=== PATIENT | male | born 1965 | race Caucasian/White ===

== ENCOUNTER 2017-05-14 15:09 | Inpatient (IN) ==
--- NOTE | 2017-05-14 16:21 | Emergency Department Note ---
Addendum entered and electronically signed by Seymour Clark DO 05/14/17 19:20: EKG - Normal sinus rhythm. Rate 86. TX 144. QRS 102. QTC 394. Normal axis. No acute ST elevation or depression. Original Note: Disposition Clinical Impression: Generalized weakness, Dehydration Altered mental status Qualifiers: Altered mental status type: unspecified Qualified Code(s): R41.82 - Altered mental status, unspecified Disposition: Admitted As Inpatient Condition: Fair Time of Disposition: 18:35 General Adult HPI - General Chief complaint: ED Weakness Stated complaint: Weakness/No appetite Time Seen by Provider: 05/14/17 16:05 Source: other Mode of arrival: other Limitations: no limitations Nursing Notes Reviewed: Yes Vital Signs Reviewed: Yes - History of Present Illness HPI Narrative: Patient is a 52-year-old male with past medical history of Down syndrome, cognitive delay. He presents today due to confusion, [place], generalized weakness. He lives at home with 24-hour care. A caregiver is currently present at bedside and states that the patient has been like this for a few days. He states that normally the patient is able to carry on a small amount conversation, walks by himself, feeds himself. However, over the past day or 2 the patient has had decreased and ability to ambulate, generalized fatigue, decreased speech, will only answer some yes or no questions, will not be himself. He has had decreased food intake. In terms of review of systems, the patient would not answer any of my questions. He was staring blankly at me. Would not follow any commands. Pain Scale: 0 - Related Data Home Medications Medication Instructions Recorded Confirmed Acetaminophen [Tylenol] 650 mg PO Q4-6H PRN 05/14/17 05/14/17 Ascorbate Calcium [Vitamin C] 500 mg PO QPM 05/14/17 05/14/17 Benztropine [Cogentin] 0.5 mg PO QAM 05/14/17 05/14/17 Calcium Carbonate/Vitamin D3 1 each PO BID 05/14/17 05/14/17 [Calcium 600-Vit D3 400 Tablet] Chlorpromazine HCl 25 mg PO QAM 05/14/17 05/14/17 Chlorpromazine HCl 150 mg PO HS 05/14/17 05/14/17 Cholecalciferol (Vitamin D3) 2,000 unit PO QPM 05/14/17 05/14/17 [Vitamin D3] Divalproex (24 HR) [Depakote ER 1,000 mg PO 1600 05/14/17 05/14/17 (24 HR)] Divalproex Sodium [Depakote 375 mg PO QAM 05/14/17 05/14/17 Sprinkle] Docusate [Colace] 200 mg PO QPM 05/14/17 05/14/17 Guaifenesin [Mucinex] 600 mg PO Q12H PRN 05/14/17 05/14/17 Levothyroxine [Synthroid] 100 mcg PO QAM 05/14/17 05/14/17 Loratadine [Claritin] 10 mg PO QAM 05/14/17 05/14/17 Mag Hydrox/Al Hydrox/Simeth 30 ml PO Q4H PRN 05/14/17 05/14/17 [Antacid Suspension] Mineral Oil/Petrolat,Wht/Water 1 appl TP TID PRN 05/14/17 05/14/17 [Lubriderm Daily Moisture Lot] Ondansetron [Zofran ODT] 8 mg SL Q6H PRN 05/14/17 05/14/17 Polyethylene Glycol 3350 [MiraLAX] 17 gm PO QAM 05/14/17 05/14/17 Rivaroxaban [Xarelto] 20 mg PO QPM 05/14/17 05/14/17 Tamsulosin [Flomax] 0.4 mg PO QAM 05/14/17 05/14/17 Previous Rx's Medication Instructions Recorded Nut.tx.impaired Digest Fxn [Ensure 1 bottle PO TID #90 can 05/19/17 Clear] Allergies Allergy/AdvReac Type Severity Reaction Status Date / Time No Known Allergies Allergy Verified 05/14/17 15:24 Limitations: ROS unobtainable due to patients medical condition Past Medical History - Past Medical History Attestation: Yes The following information was validated with the patient. Source: patient Medical history: Reports: DVT, hyperlipidemia, thyroid disease - Social History Smoking Status: Never smoker Alcohol use: Reports: none Drug use: Reports: none Physical Exam - General Limitations: altered mental status General appearance: alert - Eye Eye exam: Present: PERRL, EOMI, other (epicanthal folds consistent with down syndrome) - ENT ENT exam: mucous membranes dry - Neck Neck exam: Present: normal inspection, full ROM, trachea midline. Absent: tenderness - Respiratory Respiratory exam: Present: other (Limited examination due to poor cooperation. Shallow breaths, no significant wheezing or rales heard.) - Cardiovascular Cardiovascular exam: Present: regular rate, normal rhythm, normal heart sounds - Abdominal Exam Abdominal exam: Present: soft, Non-Tender. Absent: tenderness, distention, guarding, rebound, rigidity - Extremities Exam Extremities exam: Present: pedal edema (Mild edema bilateral lower chimneys). Absent: tenderness - Neurological Exam Neurological exam: Present: alert, other (Patient is nonverbal for me. will follow any commands. He is sitting with upper body slumped forward. He will make eye contact with me, EOMI, PERRLA. ) - Psychiatric Psychiatric exam: Present: flat affect - Skin Skin exam: Present: warm, dry, intact, normal color Course Course Narrative: Patient blood pressure mildly low at 90s over 80s. Thus the vitals within normal limits. Physical exam shows patient no distress, appears to be generalized weak on exam. Patient is nonverbal for me. will not follow any commands. He is sitting with upper body slumped forward. He will make eye contact with me, EOMI, PERRLA. Unable to assess strength due to not following commands. No focal neuro deficits seen on limited exam. Lungs clear, but limited exam due to poor cooperation. Generalized workup was ordered including a basic blood work, troponin, UA, chest x-ray. Basic blood work showed no elevation white blood cell count, hemoglobin within normal limits, electrolytes within normal limits, LFTs normal. Kidney function within normal limits. Urinalysis negative. Chest x-ray negative for any acute cardiopulmonary process. Patient was given a liter of normal saline due to dehydration clinically. He did not improve symptomatically. Will admit to the hospitalist due to altered mental status, decreased ambulation status, dehydration. 18:35 I called the hospitalist, spoke with Bozena Robles. We discussed head CT. I did not order a head CT due to no focal neurologic deficits on exam. She is going to talk to her attending and see if they can accept the patient without a head CT. 19:00 Patient accepted for admission, Bozena Robles has requested head CT and will follow up on results. CT ordered. Vital Signs Temperature 97.9 F 05/14/17 15:17 Pulse Rate 87 05/14/17 15:17 Respiratory Rate 18 05/14/17 15:17 Blood Pressure 98/66 05/14/17 15:17 O2 Sat by Pulse Oximetry 94 05/14/17 15:17 Temperature 97.7 F 05/19/17 19:03 Pulse Rate 74 05/19/17 19:03 Respiratory Rate 18 05/19/17 19:03 Blood Pressure 100/66 05/19/17 19:03 O2 Sat by Pulse Oximetry 94 05/19/17 19:03 Oxygen Delivery Oxygen Delivery Room Air Medical Decision Making - MDM Narrative Medical decision making narrative: Physical exam shows patient no distress, appears to be generalized weak on exam. Patient is nonverbal for me. will not follow any commands. He is sitting with upper body slumped forward. He will make eye contact with me, EOMI , PERRLA. Unable to assess strength due to not following commands. No focal neuro deficits seen on limited exam. Lungs clear, but limited exam due to poor cooperation. Generalized workup was ordered including a basic blood work, troponin, UA, chest x-ray. Basic blood work showed no elevation white blood cell count, hemoglobin within normal limits, electrolytes within normal limits, LFTs normal. Kidney function within normal limits. Urinalysis negative. Chest x-ray negative for any acute cardiopulmonary process. Patient was given a liter of normal saline due to dehydration clinically. He did not improve symptomatically. Will admit to the hospitalist due to altered mental status, decreased ambulation status, dehydration. I called the hospitalist, spoke with Bozena Robles. We discussed head CT. I did not order a head CT due to no focal neurologic deficits on exam. She is going to talk to her attending and see if they can accept the patient without a head CT. 19:00 Patient accepted for admission, Bozena Robles has requested head CT and will follow up on results. CT ordered. - Medical Records Medical records reviewed: Yes I reviewed the patient's medical records. - Lab Data Lab results reviewed: Yes I reviewed the patient's lab results. Result diagrams: 05/17/17 07:39 05/17/17 07:39 Lab Results 05/14/17 05/14/17 05/14/17 Range/Units 15:30 15:51 15:51 WBC 7.3 (4.3-11.1) K/mcL RBC 4.17 L (4.19-5.50) M/mcL Hgb 13.6 (12.9-16.9) g/dL Hct 42.8 (37.5-50.1) % MCV 102.6 H (83.0-100.0) fL MCH 32.6 (28.0-33.3) pg MCHC 31.8 (31.6-35.5) g/dL RDW 14.9 H (11.5-14.5) % Plt Count 103 L (140-400) K/mcL MPV 13.7 H (9.4-12.4) fL Immature Gran % 2.7 (0-4) % Seg Neutrophils % 67.9 % Lymphocytes % 19.8 % Monocytes % 8.0 % Eosinophils % 0.4 % Basophils % 1.2 % Neutrophils # 4.9 (1.6-8.9) K/mcL Lymphocytes # 1.4 (0.6-4.6) K/mcL Monocytes # 0.6 (0.0-1.3) K/mcL Eosinophils # 0.0 (0.0-0.6) K/mcL Basophils # 0.1 (0.0-0.2) K/mcL Immature Plt Fraction (1.1-6.1) % Sodium 140 (136-145) mEq/L Potassium 4.4 (3.5-4.5) mEq/L Chloride 103 (98-109) mEq/L Carbon Dioxide 31 H (19-29) mEq/L BUN 13 (8-26) mg/dL Creatinine 1.03 (0.72-1.25) mg/dL Est GFR ( Amer) > 60 (> 60) Est GFR (Non-Af Amer) > 60 (> 60) BUN/Creatinine Ratio 13 (6-26) Glucose 85 (70-99) mg/dL POC Glucose 63 (58-89) Calculated Osmolality 289 (280-300) Calcium 9.4 (8.6-10.8) mg/dL Magnesium (1.6-2.6) mg/dL Total Bilirubin 0.4 (0.2-1.2) mg/dL Direct Bilirubin 0.2 (0.0-0.5) mg/dL Indirect Bilirubin 0.2 (0.0-1.2) mg/dL AST 25 (5-34) Units/L ALT 15 (0-55) Units/L Alkaline Phosphatase 81 (38-126) Units/L Troponin I (0-0.03) ng/mL Serum Total Protein 6.6 (6.0-8.3) g/dL Albumin 2.7 L (3.5-5.0) g/dL Globulin 3.9 H (2.4-3.5) g/dL Albumin/Globulin Ratio 0.7 L (1.1-2.2) TSH (0.350-4.840) mcIU/mL Free T4 (0.70-1.48) ng/dl Urine Color (Yellow) Urine Clarity (Clear) Urine pH (5.0-8.0) pH Units Ur Specific [place] (1.010-1.025) Urine Protein (Neg-Trace) mg/dL Urine Glucose (UA) (Normal) mg/dL Urine Ketones (Negative) mg/dL Urine Blood (Negative) Urine Nitrite (Negative) Urine Bilirubin (Negative) Urine Urobilinogen (Normal) mg/dL Ur Leukocyte Esterase (Negative) Ur Culture Indicated? (NO) Urine Opiates Screen (Qqafrj=707) ng/mL Ur Barbiturates Screen (Fwhoha=874) ng/mL Free Valproic Acid (7-23) ug/mL Total Valproic Acid (50-125) ug/mL % Free Valproic Acid (5-18) % Ur Phencyclidine Scrn (Cutoff=25) ng/mL Ur Amphetamines Screen (Istojn=9618) ng/mL U Benzodiazepines Scrn (Zufvdg=797) ng/mL Urine Cocaine Screen (Cutoff= 300) ng/mL U Marijuana (THC) Screen (Cutoff = 50) ng/mL 05/14/17 05/14/17 05/14/17 Range/Units 15:51 17:03 17:08 WBC (4.3-11.1) K/mcL RBC (4.19-5.50) M/mcL Hgb (12.9-16.9) g/dL Hct (37.5-50.1) % MCV (83.0-100.0) fL MCH (28.0-33.3) pg MCHC (31.6-35.5) g/dL RDW (11.5-14.5) % Plt Count (140-400) K/mcL MPV (9.4-12.4) fL Immature Gran % (0-4) % Seg Neutrophils % % Lymphocytes % % Monocytes % % Eosinophils % % Basophils % % Neutrophils # (1.6-8.9) K/mcL Lymphocytes # (0.6-4.6) K/mcL Monocytes # (0.0-1.3) K/mcL Eosinophils # (0.0-0.6) K/mcL Basophils # (0.0-0.2) K/mcL Immature Plt Fraction (1.1-6.1) % Sodium (136-145) mEq/L Potassium (3.5-4.5) mEq/L Chloride (98-109) mEq/L Carbon Dioxide (19-29) mEq/L BUN (8-26) mg/dL Creatinine (0.72-1.25) mg/dL Est GFR ( Amer) (> 60) Est GFR (Non-Af Amer) (> 60) BUN/Creatinine Ratio (6-26) Glucose (70-99) mg/dL POC Glucose (58-89) Calculated Osmolality (280-300) Calcium (8.6-10.8) mg/dL Magnesium (1.6-2.6) mg/dL Total Bilirubin (0.2-1.2) mg/dL Direct Bilirubin (0.0-0.5) mg/dL Indirect Bilirubin (0.0-1.2) mg/dL AST (5-34) Units/L ALT (0-55) Units/L Alkaline Phosphatase (38-126) Units/L Troponin I 0.00 (0-0.03) ng/mL Serum Total Protein (6.0-8.3) g/dL Albumin (3.5-5.0) g/dL Globulin (2.4-3.5) g/dL Albumin/Globulin Ratio (1.1-2.2) TSH (0.350-4.840) mcIU/mL Free T4 (0.70-1.48) ng/dl Urine Color Dark Yellow (Yellow) Urine Clarity Clear (Clear) Urine pH 6.0 (5.0-8.0) pH Units Ur Specific [place] 1.024 (1.010-1.025) Urine Protein Negative (Neg-Trace) mg/dL Urine Glucose (UA) Normal (Normal) mg/dL Urine Ketones Trace H (Negative) mg/dL Urine Blood Negative (Negative) Urine Nitrite Negative (Negative) Urine Bilirubin Negative (Negative) Urine Urobilinogen Normal (Normal) mg/dL Ur Leukocyte Esterase Negative (Negative) Ur Culture Indicated? NO (NO) Urine Opiates Screen Negative (Oxowsg=472) ng/mL Ur Barbiturates Screen Negative (Pncmkw=267) ng/mL Free Valproic Acid (7-23) ug/mL Total Valproic Acid (50-125) ug/mL % Free Valproic Acid (5-18) % Ur Phencyclidine Scrn Negative (Cutoff=25) ng/mL Ur Amphetamines Screen Negative (Oegyvu=3383) ng/mL U Benzodiazepines Scrn Negative (Fmagua=251) ng/mL Urine Cocaine Screen Negative (Cutoff= 300) ng/mL U Marijuana (THC) Screen Negative (Cutoff = 50) ng/mL 05/14/17 05/15/17 05/15/17 Range/Units 22:16 04:48 04:48 WBC 5.3 (4.3-11.1) K/mcL RBC 3.22 L (4.19-5.50) M/mcL Hgb 10.6 L D (12.9-16.9) g/dL Hct 33.1 L (37.5-50.1) % MCV 102.8 H (83.0-100.0) fL MCH 32.9 (28.0-33.3) pg MCHC 32.0 (31.6-35.5) g/dL RDW 14.9 H (11.5-14.5) % Plt Count 82 L (140-400) K/mcL MPV 14.3 H (9.4-12.4) fL Immature Gran % 3.8 (0-4) % Seg Neutrophils % 59.0 % Lymphocytes % 28.4 % Monocytes % 7.1 % Eosinophils % 0.8 % Basophils % 0.9 % Neutrophils # 3.1 (1.6-8.9) K/mcL Lymphocytes # 1.5 (0.6-4.6) K/mcL Monocytes # 0.4 (0.0-1.3) K/mcL Eosinophils # 0.0 (0.0-0.6) K/mcL Basophils # 0.1 (0.0-0.2) K/mcL Immature Plt Fraction 15.6 H (1.1-6.1) % Sodium 142 (136-145) mEq/L Potassium 3.6 (3.5-4.5) mEq/L Chloride 109 (98-109) mEq/L Carbon Dioxide 27 (19-29) mEq/L BUN 11 (8-26) mg/dL Creatinine 0.76 (0.72-1.25) mg/dL Est GFR ( Amer) > 60 (> 60) Est GFR (Non-Af Amer) > 60 (> 60) BUN/Creatinine Ratio 14 (6-26) Glucose 65 L (70-99) mg/dL POC Glucose 96 H (58-89) Calculated Osmolality 292 (280-300) Calcium 8.1 L (8.6-10.8) mg/dL Magnesium 1.8 (1.6-2.6) mg/dL Total Bilirubin 0.3 (0.2-1.2) mg/dL Direct Bilirubin 0.2 (0.0-0.5) mg/dL Indirect Bilirubin 0.1 (0.0-1.2) mg/dL AST 19 (5-34) Units/L ALT 9 (0-55) Units/L Alkaline Phosphatase 61 (38-126) Units/L Troponin I (0-0.03) ng/mL Serum Total Protein 4.8 L D (6.0-8.3) g/dL Albumin 2.0 L D (3.5-5.0) g/dL Globulin 2.8 (2.4-3.5) g/dL Albumin/Globulin Ratio 0.7 L (1.1-2.2) TSH 5.627 H (0.350-4.840) mcIU/mL Free T4 0.75 (0.70-1.48) ng/dl Urine Color (Yellow) Urine Clarity (Clear) Urine pH (5.0-8.0) pH Units Ur Specific [place] (1.010-1.025) Urine Protein (Neg-Trace) mg/dL Urine Glucose (UA) (Normal) mg/dL Urine Ketones (Negative) mg/dL Urine Blood (Negative) Urine Nitrite (Negative) Urine Bilirubin (Negative) Urine Urobilinogen (Normal) mg/dL Ur Leukocyte Esterase (Negative) Ur Culture Indicated? (NO) Urine Opiates Screen (Kdpwyz=681) ng/mL Ur Barbiturates Screen (Nemwba=649) ng/mL Free Valproic Acid (7-23) ug/mL Total Valproic Acid (50-125) ug/mL % Free Valproic Acid (5-18) % Ur Phencyclidine Scrn (Cutoff=25) ng/mL Ur Amphetamines Screen (Rnpmdc=4570) ng/mL U Benzodiazepines Scrn (Nmuvoj=719) ng/mL Urine Cocaine Screen (Cutoff= 300) ng/mL U Marijuana (THC) Screen (Cutoff = 50) ng/mL 05/15/17 05/15/17 05/15/17 Range/Units 04:48 06:26 07:18 WBC (4.3-11.1) K/mcL RBC (4.19-5.50) M/mcL Hgb (12.9-16.9) g/dL Hct (37.5-50.1) % MCV (83.0-100.0) fL MCH (28.0-33.3) pg MCHC (31.6-35.5) g/dL RDW (11.5-14.5) % Plt Count (140-400) K/mcL MPV (9.4-12.4) fL Immature Gran % (0-4) % Seg Neutrophils % % Lymphocytes % % Monocytes % % Eosinophils % % Basophils % % Neutrophils # (1.6-8.9) K/mcL Lymphocytes # (0.6-4.6) K/mcL Monocytes # (0.0-1.3) K/mcL Eosinophils # (0.0-0.6) K/mcL Basophils # (0.0-0.2) K/mcL Immature Plt Fraction (1.1-6.1) % Sodium (136-145) mEq/L Potassium (3.5-4.5) mEq/L Chloride (98-109) mEq/L Carbon Dioxide (19-29) mEq/L BUN (8-26) mg/dL Creatinine (0.72-1.25) mg/dL Est GFR ( Amer) (> 60) Est GFR (Non-Af Amer) (> 60) BUN/Creatinine Ratio (6-26) Glucose (70-99) mg/dL POC Glucose 61 89 (58-89) Calculated Osmolality (280-300) Calcium (8.6-10.8) mg/dL Magnesium (1.6-2.6) mg/dL Total Bilirubin (0.2-1.2) mg/dL Direct Bilirubin (0.0-0.5) mg/dL Indirect Bilirubin (0.0-1.2) mg/dL AST (5-34) Units/L ALT (0-55) Units/L Alkaline Phosphatase (38-126) Units/L Troponin I (0-0.03) ng/mL Serum Total Protein (6.0-8.3) g/dL Albumin (3.5-5.0) g/dL Globulin (2.4-3.5) g/dL Albumin/Globulin Ratio (1.1-2.2) TSH (0.350-4.840) mcIU/mL Free T4 (0.70-1.48) ng/dl Urine Color (Yellow) Urine Clarity (Clear) Urine pH (5.0-8.0) pH Units Ur Specific [place] (1.010-1.025) Urine Protein (Neg-Trace) mg/dL Urine Glucose (UA) (Normal) mg/dL Urine Ketones (Negative) mg/dL Urine Blood (Negative) Urine Nitrite (Negative) Urine Bilirubin (Negative) Urine Urobilinogen (Normal) mg/dL Ur Leukocyte Esterase (Negative) Ur Culture Indicated? (NO) Urine Opiates Screen (Hbojuw=879) ng/mL Ur Barbiturates Screen (Qrhiag=989) ng/mL Free Valproic Acid 25 H (7-23) ug/mL Total Valproic Acid 74 (50-125) ug/mL % Free Valproic Acid 34 H (5-18) % Ur Phencyclidine Scrn (Cutoff=25) ng/mL Ur Amphetamines Screen (Fpzhvz=7068) ng/mL U Benzodiazepines Scrn (Tbjxky=479) ng/mL Urine Cocaine Screen (Cutoff= 300) ng/mL U Marijuana (THC) Screen (Cutoff = 50) ng/mL 05/15/17 Range/Units 11:21 WBC (4.3-11.1) K/mcL RBC (4.19-5.50) M/mcL Hgb (12.9-16.9) g/dL Hct (37.5-50.1) % MCV (83.0-100.0) fL MCH (28.0-33.3) pg MCHC (31.6-35.5) g/dL RDW (11.5-14.5) % Plt Count (140-400) K/mcL MPV (9.4-12.4) fL Immature Gran % (0-4) % Seg Neutrophils % % Lymphocytes % % Monocytes % % Eosinophils % % Basophils % % Neutrophils # (1.6-8.9) K/mcL Lymphocytes # (0.6-4.6) K/mcL Monocytes # (0.0-1.3) K/mcL Eosinophils # (0.0-0.6) K/mcL Basophils # (0.0-0.2) K/mcL Immature Plt Fraction (1.1-6.1) % Sodium (136-145) mEq/L Potassium (3.5-4.5) mEq/L Chloride (98-109) mEq/L Carbon Dioxide (19-29) mEq/L BUN (8-26) mg/dL Creatinine (0.72-1.25) mg/dL Est GFR ( Amer) (> 60) Est GFR (Non-Af Amer) (> 60) BUN/Creatinine Ratio (6-26) Glucose (70-99) mg/dL POC Glucose 86 (58-89) Calculated Osmolality (280-300) Calcium (8.6-10.8) mg/dL Magnesium (1.6-2.6) mg/dL Total Bilirubin (0.2-1.2) mg/dL Direct Bilirubin (0.0-0.5) mg/dL Indirect Bilirubin (0.0-1.2) mg/dL AST (5-34) Units/L ALT (0-55) Units/L Alkaline Phosphatase (38-126) Units/L Troponin I (0-0.03) ng/mL Serum Total Protein (6.0-8.3) g/dL Albumin (3.5-5.0) g/dL Globulin (2.4-3.5) g/dL Albumin/Globulin Ratio (1.1-2.2) TSH (0.350-4.840) mcIU/mL Free T4 (0.70-1.48) ng/dl Urine Color (Yellow) Urine Clarity (Clear) Urine pH (5.0-8.0) pH Units Ur Specific [place] (1.010-1.025) Urine Protein (Neg-Trace) mg/dL Urine Glucose (UA) (Normal) mg/dL Urine Ketones (Negative) mg/dL Urine Blood (Negative) Urine Nitrite (Negative) Urine Bilirubin (Negative) Urine Urobilinogen (Normal) mg/dL Ur Leukocyte Esterase (Negative) Ur Culture Indicated? (NO) Urine Opiates Screen (Vmtrxv=342) ng/mL Ur Barbiturates Screen (Zlwysu=992) ng/mL Free Valproic Acid (7-23) ug/mL Total Valproic Acid (50-125) ug/mL % Free Valproic Acid (5-18) % Ur Phencyclidine Scrn (Cutoff=25) ng/mL Ur Amphetamines Screen (Ciajtk=3532) ng/mL U Benzodiazepines Scrn (Gbslyq=624) ng/mL Urine Cocaine Screen (Cutoff= 300) ng/mL U Marijuana (THC) Screen (Cutoff = 50) ng/mL - Radiology Data Radiology results reviewed: Yes I reviewed the patient's radiology results. Chest X-Ray 05/14/17 16:19 IMPRESSION: No acute cardiopulmonary disease. D/ / Salvador Keane MD / Salvador Keane MD Interpreting Provider: Salvador Keane MD S.B.A.Guido - [place] Situation: Demographics, MOA Background: Presenting Complaint, Relevant PMH, Meds, & Allergies Assessment: Vital Signs, Course and respsone to treatment, Exam Concerns, Patient/Family Expectation, Pertinant Lab Results, Outstanding Labs Recommendation: Barrier(s) to disposition, Recommendation based on pending studies, treatments, or consults S.B.A.RChavo Report Given to: Bozena Lees Repor Time: 19:19 Attestation Statement - Attestation Attestation: I examined this patient and my medical decision-making was reviewed with the Resident Physician. I agree with the documented findings, disposition and treatment plan as described.
[2017-05-14 16:35] LABS: Basophils # 0.1 K/mcL (0.0-0.2); Basophils % 1.2 %; Eosinophils % 0.4 %; Hematocrit 42.8 % (37.5-50.1); Hemoglobin 13.6 g/dL (12.9-16.9); Immature Granulocytes % 2.7 % (0-4); Lymphocytes # 1.4 K/mcL (0.6-4.6); Lymphocytes % 19.8 %; Mean Corpuscular HGB Conc 31.8 g/dL (31.6-35.5); Mean Corpuscular Hemoglobin 32.6 pg (28.0-33.3); Mean Corpuscular Volume 102.6 fL (83.0-100.0); Mean Platelet Volume 13.7 fL (9.4-12.4); Monocytes # 0.6 K/mcL (0.0-1.3); Neutrophils # 4.9 K/mcL (1.6-8.9); Platelet Count 103 K/mcL (140-400); Red Blood Count 4.17 M/mcL (4.19-5.50); Red Cell Distribution Width 14.9 % (11.5-14.5); Segmented Neutrophils % 67.9 %
[2017-05-14 16:49] LABS: Alanine Aminotransferase 15 Units/L (0-55); Albumin 2.7 g/dL (3.5-5.0); Albumin/Globulin Ratio 0.7 (1.1-2.2); Alkaline Phosphatase 81 Units/L (38-126); Aspartate Amino Transferase 25 Units/L (5-34); BUN/Creatinine Ratio 13 (6-26); Bilirubin,Direct 0.2 mg/dL (0.0-0.5); Bilirubin,Indirect 0.2 mg/dL (0.0-1.2); Bilirubin,Total 0.4 mg/dL (0.2-1.2); Blood Urea Nitrogen 13 mg/dL (8-26); Calcium 9.4 mg/dL (8.6-10.8); Carbon Dioxide 31 mEq/L (19-29); Chloride 103 mEq/L (98-109); Globulin 3.9 g/dL (2.4-3.5); Glucose 85 mg/dL (70-99); Osmolality,Calculated 289 (280-300); Potassium 4.4 mEq/L (3.5-4.5); Sodium 140 mEq/L (136-145); Total Protein 6.6 g/dL (6.0-8.3); eGFR For African Americans > 60 (> 60); eGFR For Non-African Americans > 60 (> 60)
[2017-05-14] MEDS ORDERED: 0.9 % Sodium Chloride 1,000 ML IVC ONE (17:16)
[2017-05-14 17:19] LABS: Amphetamine Screen,Urine Negative ng/mL (Cutoff=1000); Barbiturate Screen,Urine Negative ng/mL (Cutoff=200); Benzodiazepines Screen,Urine Negative ng/mL (Cutoff=200); Cannabinoid Screen,Urine Negative ng/mL (Cutoff = 50); Cocaine Screen,Urine Negative ng/mL (Cutoff= 300); Opiate Screen,Urine Negative ng/mL (Cutoff=300); Phencyclidine Screen,Urine Negative ng/mL (Cutoff=25)
[2017-05-14 17:51] LABS: Bilirubin,Urine Negative (Negative); Blood,Urine Negative (Negative); Clarity,Urine Clear (Clear); Color,Urine Dark Yellow (Yellow); Glucose,Urine (UA) Normal (Normal); Ketones,Urine Trace mg/dL (Negative); Leukocyte Esterase,Urine Negative (Negative); Nitrite,Urine Negative (Negative); Protein,Urine Negative (Neg-Trace); Specific Gravity,Urine 1.024 (1.010-1.025); Urobilinogen,Urine Normal (Normal)
[2017-05-14] MEDS ORDERED: Acetaminophen 325 MG TABLET PO PRN (20:53)
[2017-05-14] MEDS ORDERED: PETROLAT WHT TP PRN (20:53)
[2017-05-14] MEDS ORDERED: WATER TP PRN (20:53)
[2017-05-14] MEDS ORDERED: Ondansetron ODT 4 MG TAB.RAPDIS SL PRN (20:53)
[2017-05-14] MEDS ORDERED: MINERAL OIL TP PRN (20:53)
[2017-05-14] MEDS ORDERED: Naloxone 0.4 MG/ML INJ IVP PRN (20:55)
[2017-05-14] MEDS ORDERED: 0.9 % Sodium Chloride 1,000 ML IVC SCH (21:00)
--- NOTE | 2017-05-14 21:02 | Internal Med History&Physical ---
Date of Encounter: 05/14/17 Time of Encounter: 20:59 Assessment and Plan (1) Acute encephalopathy Current visit: Yes Status: Acute check TFT, check valproate level, treat constipation. No overt signs of infection with normal CXR, UA. (2) Generalized weakness Current visit: Yes Status: Acute likely related to acute encephalopathy above (3) Hypothyroid Current visit: Yes Status: Acute check TFT. Continue med Qualifiers: Hypothyroidism type: acquired Qualified Code(s): E03.9 - Hypothyroidism, unspecified (4) Seizure disorder Current visit: Yes Status: Acute hold depakote until level is checked in the a.m. Note that keppra was d/c 1.5 weeks ago. Internal Medicine - H&P: HPI Chief complaint: AMS History of present illness: Mr. Sanchez is a 52 year old male with MRDD down syndrome who presents with 3 days hx of AMS. As baseline, he walks by himself, able to communicate, dresses himself and feeds himself. He has 24 hour care givers. His caregive reports 3 days hx of AMS, not acting right, decrease responsiveness , confusion and generalized non-focal weakness. This morning he was unable to feed himself when his breakfast was served and put his face in his food. On review, he has a hx of questionable seizure in the past and had been on keppra and valproate. The dx is in question but he is receiving empiric therapy. He is still on valproate but had his keppra taken off 1.5 weeks ago Review notes of constipation. No BM for last few days Urine looks negative CT/CT head/brain wo con IMPRESSION: No acute intracranial hemorrhage or mass effect. Advanced atrophy for patient's age, likely related to history of Down syndrome. Mild patchy white matter hypodensity is favored to represent chronic small vessel ischemia. XR/XR chest 1V portable IMPRESSION: No acute cardiopulmonary disease. Past Med Surg Social Fam HX - Past Medical History Medical history: DVT, hyperlipidemia, thyroid disease - Past Surgical History Surgical History: no surgical history - Social History Smoking Status: Never smoker Alcohol use: none Drug use: none - Additional Family History Additional family history: HTN Internal Medicine - H&P: Meds Acetaminophen [Tylenol] 650 mg PO Q4-6H PRN 09/06/17 [History] Ascorbate Calcium [Vitamin C] 500 mg PO QPM 05/14/17 [History] Benztropine [Cogentin] 0.5 mg PO QAM 05/14/17 [History] Calcium Carbonate/Vitamin D3 [Calcium 600-Vit D3 400 Tablet] 1 each PO BID 05/14 [History] Chlorpromazine HCl 25 mg PO QAM 05/14/17 [History] Chlorpromazine HCl 150 mg PO HS 05/14/17 [History] Cholecalciferol (Vitamin D3) [Vitamin D] 2,000 unit PO QPM 05/14/17 [History] Divalproex (24 HR) [Depakote ER (24 HR)] 1,000 mg PO 1600 05/14/17 [History] Divalproex Sodium [Depakote Sprinkle] 375 mg PO QAM 05/14/17 [History] Docusate [Colace] 200 mg PO QPM 05/14/17 [History] Guaifenesin [Mucinex] 600 mg PO Q12H PRN 05/14/17 [History] Levothyroxine [Synthroid] 100 mcg PO QAM 05/14/17 [History] Loratadine [Claritin] 10 mg PO QAM 05/14/17 [History] Mag Hydrox/Al Hydrox/Simeth [Antacid Suspension] 30 ml PO Q4H PRN 05/14/17 [ History] Mineral Oil/Petrolat,Wht/Water [Lubriderm Daily Moisture Lot] 1 appl TP TID PRN 05/14/17 [History] Ondansetron [Zofran ODT] 8 mg SL Q6H PRN 05/14/17 [History] Polyethylene Glycol 3350 [MiraLAX] 17 gm PO QAM 05/14/17 [History] Rivaroxaban [Xarelto] 20 mg PO QPM 05/14/17 [History] Tamsulosin [Flomax] 0.4 mg PO QAM 05/14/17 [History] 3 Allergy/AdvReac Type Severity Reaction Status Date / Time No Known Allergies Allergy Verified 05/14/17 15:24 All Systems PM: A 10-system review of systems was performed and is negative for pertinent findings except as documented above in the HPI. Review of systems: ROS 14 point review of systems reviewed as best as possible given presentation. Pertinent positive or negative as per HPI or otherwise reviewed as negative - Constitutional Vitals: Temp Pulse Resp BP Pulse Ox 98.4 F 82 12 108/70 93 05/14/17 20:34 05/14/17 20:34 05/14/17 20:34 05/14/17 20:34 05/14/17 20:34 Exam: General - Alert and wake but does not interact Psych - Appropriate affect/speech. No agitation Eyes - ERLIN. Eye lids intact. No scleral icterus Neuro - Difficult as patient unable to follow command Heart - Sinus. RRR. S1 and S2 present. No added HS/murmurs appreciated. No elevated JVD appreciated. No calf swellings/erythema Lung - Adequate air entry b/l, No crackes/wheezes appreciated GI - Soft, non-tender. No hepatosplenomegaly/ascites. BS+ - No CVA/suprapubic tenderness or palpable bladder distension Skin - Intact. No rash/petechiae/ecchymosis. Warm extremities Internal Med - H&P Results - Labs CBC & Chem 7: 05/14/17 15:51 05/14/17 15:51
[2017-05-15 05:22] LABS: Eosinophils % 0.8 %; Mean Corpuscular Volume 102.8 fL (83.0-100.0); Red Cell Distribution Width 14.9 % (11.5-14.5)
[2017-05-15 05:24] LABS: Basophils # 0.1 K/mcL (0.0-0.2); Basophils % 0.9 %; Hematocrit 33.1 % (37.5-50.1); Hemoglobin 10.6 g/dL (12.9-16.9); Immature Granulocytes % 3.8 % (0-4); Immature Platelets 15.6 % (1.1-6.1); Lymphocytes # 1.5 K/mcL (0.6-4.6); Lymphocytes % 28.4 %; Mean Corpuscular Hemoglobin 32.9 pg (28.0-33.3); Mean Platelet Volume 14.3 fL (9.4-12.4); Monocytes # 0.4 K/mcL (0.0-1.3); Monocytes % 7.1 %; Neutrophils # 3.1 K/mcL (1.6-8.9); Red Blood Count 3.22 M/mcL (4.19-5.50)
[2017-05-15 05:27] LABS: Platelet Count 82 K/mcL (140-400)
[2017-05-15 05:46] LABS: Alanine Aminotransferase 9 Units/L (0-55); Albumin/Globulin Ratio 0.7 (1.1-2.2); Alkaline Phosphatase 61 Units/L (38-126); Aspartate Amino Transferase 19 Units/L (5-34); BUN/Creatinine Ratio 14 (6-26); Bilirubin,Direct 0.2 mg/dL (0.0-0.5); Bilirubin,Indirect 0.1 mg/dL (0.0-1.2); Bilirubin,Total 0.3 mg/dL (0.2-1.2); Blood Urea Nitrogen 11 mg/dL (8-26); Calcium 8.1 mg/dL (8.6-10.8); Carbon Dioxide 27 mEq/L (19-29); Chloride 109 mEq/L (98-109); Globulin 2.8 g/dL (2.4-3.5); Glucose 65 mg/dL (70-99); Magnesium 1.8 mg/dL (1.6-2.6); Osmolality,Calculated 292 (280-300); Potassium 3.6 mEq/L (3.5-4.5); Sodium 142 mEq/L (136-145); eGFR For African Americans > 60 (> 60); eGFR For Non-African Americans > 60 (> 60)
[2017-05-15 06:10] LABS: Thyroid Stimulating Hormone 5.627 mcIU/mL (0.350-4.840)
[2017-05-15 06:12] LABS: Total Protein 4.8 g/dL (6.0-8.3)
[2017-05-15] MEDS ORDERED: *HR* Dextrose 50 % in Water (Syg) 50 ML SYRINGE IVP ONE (06:35)
[2017-05-15] MEDS: D5% in 0.45% NACL 1,000 ML IVC SCH (06:39)
--- NOTE | 2017-05-15 08:11 | Internal Med Progress Note ---
Date of Encounter: 05/15/17 Time of Encounter: 08:00 - Assessment and plan (1) Expressive aphasia Current Visit: Yes Status: Acute Assessment and plan: On examination, patient appears as if he is attempting to speak but is unable to do so. He is able to track movement with his eyes however he is unable to follow any other commands. At his baseline, he is very high functioning and is able to dress himself, feed himself and able to communicate effectively. He currently is nowhere near his baseline. I am concerned for possible acute CVA. MRI has been ordered. Initial concern was that the patient may be having seizures. He has a seizure disorder and has recently been taken off his Keppra approximately 1.5 weeks ago but he remains on his Depakote- levels drawn this am and are pending. He was able to track movement which makes seizure less likely however EEG ordered and consultation to neurology was placed. There does not appear to be any indications of an acute infectious process. Chest x- ray negative. Urinalysis negative. Tox screen negative. Head CT negative. No leukocytosis. Of note, he is on Xarelto for DVT. Will await MRI that has been ordered STAT. ITS Impressions Chest X-Ray 05/14/17 16:19 IMPRESSION: No acute cardiopulmonary disease. D/ / Salvador Keane MD / Salvador Keane MD Interpreting Provider: Salvador Keane MD Head CT 05/14/17 19:17 IMPRESSION: No acute intracranial hemorrhage or mass effect. Advanced atrophy for patient's age, likely related to history of Down syndrome. Mild patchy white matter hypodensity is favored to represent chronic small vessel ischemia. D/ / Salvador Slade MD / Salvador Slade MD Interpreting Provider: Salvador Slade MD (2) Acute encephalopathy Current Visit: Yes Status: Inactive Assessment and plan: Less likely given his clinical presentation. Concern for CVA. (3) Generalized weakness Current Visit: Yes Status: Acute Assessment and plan: See prior note for expressive aphasia. (4) Altered mental status Current Visit: Yes Status: Acute (5) Developmental delay, moderate Current Visit: Yes Status: Chronic Assessment and plan: Very high functioning MRDD patient. Feet some self dresses himself and communicates well. Current functioning is nowhere near his baseline. Investigating. He does have 24-hour care at home. (6) Subclinical hypothyroidism Current Visit: Yes Status: Acute Assessment and plan: TSH borderline elevated, T4 normal, follow-up outpatient (7) Hypothyroid Current Visit: Yes Status: Chronic (8) Dehydration Current Visit: Yes Status: Acute Assessment and plan: Mildly dehydrated on examination, continue maintenance IV fluids. (9) Seizure disorder Current Visit: Yes Status: Chronic Assessment and plan: Has been taken off his Keppra 1.5 weeks ago. Remains on Depakote-levels drawn this morning and are pending. Neurology on board. EEG pending. (10) DVT prophylaxis Current Visit: Yes Status: Acute Assessment and plan: on Xarelto - Subjective Interval history: Patient seen and examined. On examination, patient resting supine in bed. Patient is alert and interactive however he is unable to speak at this time. It appears as if he is attempting to speak but is unable to do so. Initial concern was for a seizure however he is able to track with his eyes but yet he is unable to follow any commands otherwise. Concern for acute CVA, MRI ordered. - Constitutional Vitals: Temp Pulse Resp BP Pulse Ox 97.7 F 63 11 109/69 91 05/15/17 07:40 05/15/17 07:40 05/15/17 07:40 05/15/17 07:40 05/15/17 07:40 General appearance: Present: A&O X 0 (unable to speak), no acute distress. Absent: answers questions appropriately - Head Head exam: Present: atraumatic, normocephalic - Eye Eye exam: Present: PERRL, conjuntiva pink, sclera anicteric Pupils: Present: PERRL - Neck Neck exam general surgery: Present: supple, trachea midline. Absent: lymphadenopathy - Respiratory Respiratory exam: Present: decreased breath sounds. Absent: accessory muscle use, rales, respiratory distress, rhonchi, wheezes - Cardiovascular Cardiovascular exam: Present: RRR, +S1, +S2. Absent: diastolic murmur, gallop, rubs, systolic murmur - GI/Abdominal GI/Abdominal exam: Present: normal bowel sounds, soft, no peritoneal signs. Absent: distended, tenderness - Extremities Exam Extremities exam: Present: warm, radial pulses palpable and symmetrical. Absent : calf tenderness, cyanotic, pedal edema - Neurological Exam Neurological exam: Present: altered, no focal deficits, speech deficit. Absent : strengths equal and symetr throughout (unable to determine- cannot follow commands), pronater drift, facial droop - Expanded Neurological Exam Neurological exam expanded: Present: protecting the airway Patient oriented to: Absent: person, place, time Speech: Present: expressive aphasia, total aphasia Cranial Nerves: EOM's intact PM: Normal, gag reflex PM: Normal Neuro motor strength exam: LUE: 0 (cannot follow commands), RUE: 0, LLE: 0, RLE : 0 Coma Scale Eye Opening: Spontaneous Coma Scale Motor Response: Withdraws to Pain Coma Scale Verbal Response: None Coma Scale Total: 9 - Skin Skin exam: Present: dry, intact, pallor, warm Internal Medicine: Result - Labs CBC & Chem 7: 05/15/17 04:48 05/15/17 04:48 Labs: Short CBC 05/15/17 Range/Units 04:48 WBC 5.3 (4.3-11.1) K/mcL Hgb 10.6 L D (12.9-16.9) g/dL Hct 33.1 L (37.5-50.1) % Plt Count 82 L (140-400) K/mcL Neutrophils # 3.1 (1.6-8.9) K/mcL BMP 05/15/17 04:48 Sodium 142 Potassium 3.6 Chloride 109 Carbon Dioxide 27 BUN 11 Creatinine 0.76 Glucose 65 L Calcium 8.1 L Liver Function 05/15/17 Range/Units 04:48 Total Bilirubin 0.3 (0.2-1.2) mg/dL Direct Bilirubin 0.2 (0.0-0.5) mg/dL AST 19 (5-34) Units/L ALT 9 (0-55) Units/L Alkaline Phosphatase 61 (38-126) Units/L Albumin 2.0 L D (3.5-5.0) g/dL Consult Discharge Plan - Plan Referrals: NONE,PCP [Primary Care Provider] -
[2017-05-15] MEDS ORDERED: 0.9 % Sodium Chloride 1,000 ML IVC SCH (08:15)
[2017-05-15] MEDS: Loratadine 10 MG TABLET PO SCH (11:15)
[2017-05-15] MEDS: Cholecalciferol (D-3) 1,000 UNIT TABLET PO SCH ×2 (11:17→18:39)
--- NOTE | 2017-05-15 13:24 | Neurology - Consult Note ---
Date of Encounter: 05/15/17 Time of Encounter: 13:20 Assessment and Plan (1) Altered mental status Current Visit: Yes Status: Acute It seems more likely that we are dealing with underlying emotional or behavioral issues resulting in his changed mental status, however missed also consider the possibility of seizure versus cerebral infarct. A valproate level is pending as well. Further recommendations will be made pending completion of the MRI scan. I anticipate reading EEG study later today. Qualifiers: Altered mental status type: unspecified Qualified Code(s): R41.82 - Altered mental status, unspecified History of Present Illness HPI: Mr. Sanchez is a 52 year old male with Down syndrome who lives at home however requires 24-hour assistance is admitted to [facility] for behavioral changes. Although he has Down syndrome, he is fairly high functioning, awake alert and generally able to converse. However he was admitted secondary to some behavioral change when he was essentially aphasic and less active. Apparently he was recently taken off his Keppra about a week and a half ago. However apparently his roommate recently moved out and it may be some stress related factors involved here. However when I saw him today he was in the company of 2 of his caregivers, and they both agreed that he was back to his normal baseline levels of functioning. CT scan of the head was performed acutely and revealed some advanced atrophy considering the patient's age likely due to Down syndrome as well as patchy white matter chronic ischemic changes. WBCs were normal at 7.3 he does have a macrocytosis with an MCV of 102.6. The remainder of the cell indices are essentially normal, sodium was 140 , potassium 4.4, chloride 103 carbon dioxide essentially normal at 31. B1 was normal at 13 creatinine 1.03. Past Med Surg Social Fam HX - Past Medical History Medical history: DVT, hyperlipidemia, thyroid disease Psychiatric history: no psych history - Past Surgical History Surgical History: no surgical history - Social History Smoking Status: Never smoker Alcohol use: none Drug use: none - Family History Mother History Unknown: Yes Medications and Allergies Acetaminophen [Tylenol] 650 mg PO Q4-6H PRN 05/14/17 [History] Ascorbate Calcium [Vitamin C] 500 mg PO QPM 05/14/17 [History] Benztropine [Cogentin] 0.5 mg PO QAM 05/14/17 [History] Calcium Carbonate/Vitamin D3 [Calcium 600-Vit D3 400 Tablet] 1 each PO BID 05/14 [History] Chlorpromazine HCl 25 mg PO QAM 05/14/17 [History] Chlorpromazine HCl 150 mg PO HS 05/14/17 [History] Cholecalciferol (Vitamin D3) [Vitamin D] 2,000 unit PO QPM 05/14/17 [History] Divalproex (24 HR) [Depakote ER (24 HR)] 1,000 mg PO 1600 05/14/17 [History] Divalproex Sodium [Depakote Sprinkle] 375 mg PO QAM 05/14/17 [History] Docusate [Colace] 200 mg PO QPM 05/14/17 [History] Guaifenesin [Mucinex] 600 mg PO Q12H PRN 05/14/17 [History] Levothyroxine [Synthroid] 100 mcg PO QAM 05/14/17 [History] Loratadine [Claritin] 10 mg PO QAM 05/14/17 [History] Mag Hydrox/Al Hydrox/Simeth [Antacid Suspension] 30 ml PO Q4H PRN 05/14/17 [ History] Mineral Oil/Petrolat,Wht/Water [Lubriderm Daily Moisture Lot] 1 appl TP TID PRN 05/14/17 [History] Ondansetron [Zofran ODT] 8 mg SL Q6H PRN 05/14/17 [History] Polyethylene Glycol 3350 [MiraLAX] 17 gm PO QAM 05/14/17 [History] Rivaroxaban [Xarelto] 20 mg PO QPM 05/14/17 [History] Tamsulosin [Flomax] 0.4 mg PO QAM 05/14/17 [History] 3 Allergy/AdvReac Type Severity Reaction Status Date / Time No Known Allergies Allergy Verified 05/14/17 15:24 ROS unobtainable: due to mental status All Systems: A 10-system review of systems was performed and is negative for pertinent findings except as documented above in the HPI. Physical Examination - Vital Signs Vital Signs: Initial Vital Signs Temp Pulse Resp BP Pulse Ox 97.9 F 87 18 98/66 94 05/14/17 15:17 05/14/17 15:17 05/14/17 15:17 05/14/17 15:17 05/14/17 15:17 - Exam Exam: Mental status-patient is now awake, alert, and interactive. He has paucity of speech however he does smile and communicates by gesturing. He follows some simple commands, but not all. He has obvious cognitive deficits. He does have Down syndrome facies. Cranial nerves-pupils were equal and reactive to light and accommodation, extraocular motility is intact. There is no facial asymmetry. Speech is dysarthric. He does have macroglossia. Motor exam finds a free range of motion of both upper extremities. 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 His left leg is externally rotated at rest. However he does withdraw briskly to plantar stimulation. He also withdraws briskly to plantar stimulation of the right foot. No involuntary movements or atrophy are present. Deep tendon reflexes-no long tract signs or clonus at present. Results - Laboratory Findings CBC and BMP: 05/15/17 04:48 05/15/17 04:48 Abnormal lab findings: Abnormal lab results RBC 3.22 M/mcL (4.19-5.50) L 05/15/17 04:48 Hgb 10.6 g/dL (12.9-16.9) L D 05/15/17 04:48 Hct 33.1 % (37.5-50.1) L 05/15/17 04:48 MCV 102.8 fL (83.0-100.0) H 05/15/17 04:48 RDW 14.9 % (11.5-14.5) H 05/15/17 04:48 Plt Count 82 K/mcL (140-400) L 05/15/17 04:48 MPV 14.3 fL (9.4-12.4) H 05/15/17 04:48 Immature Plt Fraction 15.6 % (1.1-6.1) H 05/15/17 04:48 Glucose 65 mg/dL (70-99) L 05/15/17 04:48 Calcium 8.1 mg/dL (8.6-10.8) L 05/15/17 04:48 Serum Total Protein 4.8 g/dL (6.0-8.3) L D 05/15/17 04:48 Albumin 2.0 g/dL (3.5-5.0) L D 05/15/17 04:48 Albumin/Globulin Ratio 0.7 (1.1-2.2) L 05/15/17 04:48 TSH 5.627 mcIU/mL (0.350-4.840) H 05/15/17 04:48 Urine Ketones Trace mg/dL (Negative) H 05/14/17 17:03 Consult Discharge Plan - Plan Referrals: NONE,PCP [Primary Care Provider] -
--- NOTE | 2017-05-15 16:48 | EEG/EMG/Oth Biometrics Report ---
EEG Procedure Report Date of procedure: 05/15/17 EEG Procedure: Routine EEG Procedure Note: This is a report of a 21 channel bipolar and referential montage EEG recorded on an individual known to have Down syndrome who was acutely confused. There is no posterior dominant alpha rhythm identified at any time during the recording. The resting rhythm consists of primarily slow wave activity in all leads bilaterally. Occasional theta waves identified anteriorly. Occasional spindle-like activity is identified as well. However there is no organized sleep architecture otherwise. Photic stimulation is performed and does not produce a driving response. The EKG rhythm strip reveals sinus rhythm however the right is irregular at around 72 beats per minute. Impressions: This EEG recording is abnormal and is consistent with a moderate to severe generalized encephalopathy. There is no evidence of epileptiform activity identified during the study. Comment: Etiologies consistent with this interpretation might include toxic, metabolic, postictal, degenerative, congenital. A normal EEG does not preclude a diagnosis of seizure or epilepsy. If the clinical suspicion for seizure activity is high, serial EEGs or perhaps a prolonged recording may increase the yield. Please correlate clinically.
--- NOTE | 2017-05-15 17:01 | Electrocardiograph Report ---
[place] [id number] Test Date: 2017-05-14 Pat Name: Pritesh Sanchez Department: 102 Room: 3B Gender: M Technical Staff Assistant: Rajan : 1965 Requested By: Seymour Clark Order Number: [id number] Reading MD: Diallo Shanks DO Measurements Intervals [place] Rate: 83 P: 62 VA: 113 QRS: 75 QRSD: 90 T: 50 QT: 328 QTc: 368 Interpretive Statements SINUS RHYTHM NONSPECIFIC T-WAVE ABNORMALITY Electronically Signed On 05-15-2017 16:59:35 EDT by Diallo Shanks DO
[2017-05-15] MEDS: Ascorbic Acid 500 MG TABLET PO SCH (18:39)
[2017-05-15] MEDS: *HR* Rivaroxaban 10 MG TABLET PO SCH (18:40)
[2017-05-16] MEDS: D5% in 0.45% NACL 1,000 ML IVC SCH (03:57)
[2017-05-16 07:04] LABS: Hematocrit 33.5 % (37.5-50.1); Hemoglobin 10.8 g/dL (12.9-16.9); Mean Corpuscular HGB Conc 32.2 g/dL (31.6-35.5)
[2017-05-16 07:06] LABS: Basophils # 0.1 K/mcL (0.0-0.2); Eosinophils % 0.7 %; Immature Granulocytes % 2.8 % (0-4); Immature Platelets 15.9 % (1.1-6.1); Lymphocytes # 1.5 K/mcL (0.6-4.6); Mean Corpuscular Hemoglobin 32.7 pg (28.0-33.3); Mean Corpuscular Volume 101.5 fL (83.0-100.0); Mean Platelet Volume 13.6 fL (9.4-12.4); Monocytes # 0.5 K/mcL (0.0-1.3); Monocytes % 8.5 %; Neutrophils # 3.7 K/mcL (1.6-8.9); Red Cell Distribution Width 14.8 % (11.5-14.5)
[2017-05-16 07:09] LABS: Alanine Aminotransferase 8 Units/L (0-55); Albumin/Globulin Ratio 0.6 (1.1-2.2); Alkaline Phosphatase 54 Units/L (38-126); Aspartate Amino Transferase 23 Units/L (5-34); BUN/Creatinine Ratio 9 (6-26); Bilirubin,Direct 0.2 mg/dL (0.0-0.5); Bilirubin,Indirect 0.1 mg/dL (0.0-1.2); Bilirubin,Total 0.3 mg/dL (0.2-1.2); Blood Urea Nitrogen 7 mg/dL (8-26); Calcium 8.1 mg/dL (8.6-10.8); Carbon Dioxide 26 mEq/L (19-29); Chloride 107 mEq/L (98-109); Globulin 3.2 g/dL (2.4-3.5); Glucose 101 mg/dL (70-99); Osmolality,Calculated 286 (280-300); Potassium 3.9 mEq/L (3.5-4.5); Total Protein 5.1 g/dL (6.0-8.3); eGFR For African Americans > 60 (> 60); eGFR For Non-African Americans > 60 (> 60)
[2017-05-16 07:11] LABS: Albumin 1.9 g/dL (3.5-5.0)
[2017-05-16 07:12] LABS: Sodium 139 mEq/L (136-145)
[2017-05-16 07:23] LABS: Platelet Count 86 K/mcL (140-400)
[2017-05-16 07:41] LABS: Platelet Estimate Decreased (Normal)
[2017-05-16] MEDS ORDERED: *HR* LORazepam 2 MG/ML VIAL IVP ONE (07:45)
[2017-05-16] MEDS ORDERED: Mag Hydrox/Al Hydrox/Simeth 30 ML UDC PO PRN (07:46)
[2017-05-16] MEDS: Divalproex Sodium 125 MG CAPSULE PO SCH (10:04)
[2017-05-16] MEDS: Loratadine 10 MG TABLET PO SCH (10:04)
[2017-05-16] MEDS: chlorproMAZINE 25 MG TABLET PO SCH ×2 (10:05→21:31)
[2017-05-16] MEDS: Cholecalciferol (D-3) 1,000 UNIT TABLET PO SCH ×2 (10:05→17:31)
--- NOTE | 2017-05-16 14:13 | Internal Med Progress Note ---
Date of Encounter: 05/16/17 Time of Encounter: 13:30 - Assessment and plan (1) Expressive aphasia Current Visit: Yes Status: Acute Assessment and plan: Patient appears to be progressing back to his baseline. When his family presented yesterday, he became much more alert and interactive. His family states that he was living with a roommate until February. After his roommate moved out, patient has been progressively losing weight. Concern for depression now that acute infectious or neurological issues have essentially been ruled out. MRI ruled out acute CVA. No signs of an acute infection. He has 24 hour care at home, but he has regressed from his norm. Prior to presentation, patient was ambulatory and able to feed and dress himself. OT PT consultations have been placed. Disposition unclear at this time. Patient is currently too drowsy to discuss plan of care- presumably from lorazepam given to him prior to his MRI this am. Neurology on board. EEG abnormal; no signs of seizure-like activity since arrival. 05/15/17 On examination, patient appears as if he is attempting to speak but is unable to do so. He is able to track movement with his eyes however he is unable to follow any other commands. At his baseline, he is very high functioning and is able to dress himself, feed himself and able to communicate effectively. He currently is nowhere near his baseline. I am concerned for possible acute CVA. MRI has been ordered. Initial concern was that the patient may be having seizures. He has a seizure disorder and has recently been taken off his Keppra approximately 1.5 weeks ago but he remains on his Depakote- levels drawn this am and are pending. He was able to track movement which makes seizure less likely however EEG ordered and consultation to neurology was placed. There does not appear to be any indications of an acute infectious process. Chest x- ray negative. Urinalysis negative. Tox screen negative. Head CT negative. No leukocytosis. Of note, he is on Xarelto for DVT. Will await MRI that has been ordered STAT. ITS Impressions Chest X-Ray 05/14/17 16:19 IMPRESSION: No acute cardiopulmonary disease. D/ / Salvador Keane MD / Salvador Keane MD Interpreting Provider: Salvador Keane MD Head CT 05/14/17 19:17 IMPRESSION: No acute intracranial hemorrhage or mass effect. Advanced atrophy for patient's age, likely related to history of Down syndrome. Mild patchy white matter hypodensity is favored to represent chronic small vessel ischemia. D/ / Salvador Slade MD / Salvador Slade MD Interpreting Provider: Salvador Slade MD (2) Acute encephalopathy Current Visit: Yes Status: Inactive Assessment and plan: Less likely given his clinical presentation. CVA ruled out. Concern for worsening depression/mood issues. Valproic acid levels borderline low. Neurology on board-appreciate their recommendations regarding possible dosage adjustments at their discretion. OT and PT consultations are pending. (3) Generalized weakness Current Visit: Yes Status: Acute Assessment and plan: See prior note for expressive aphasia. (4) Altered mental status Current Visit: Yes Status: Acute Assessment and plan: Yesterday, it appeared as if the patient was back to his baseline. He is currently too drowsy presumably from the lorazepam he received prior to his MRI this morning. We will reassess once he is more alert. (5) Developmental delay, moderate Current Visit: Yes Status: Chronic Assessment and plan: Very high functioning MRDD patient. Feeds himself dresses himself and communicates well. Current functioning is approaching his baseline. Improving. He does have 24-hour care at home. (6) Subclinical hypothyroidism Current Visit: Yes Status: Acute Assessment and plan: TSH borderline elevated, T4 normal, follow-up outpatient (7) Hypothyroid Current Visit: Yes Status: Chronic (8) Dehydration Current Visit: Yes Status: Acute Assessment and plan: Mildly dehydrated on examination, continue maintenance IV fluids. (9) Seizure disorder Current Visit: Yes Status: Chronic Assessment and plan: Has been taken off his Keppra 1.5 weeks ago. Remains on Depakote-very mildly subtherapeutic levels. Neurology on board. EEG abnormal. (10) DVT prophylaxis Current Visit: Yes Status: Acute Assessment and plan: on Xarelto - Subjective Interval history: Patient seen and examined. On examination, patient sitting upright in bed falling asleep while sitting up. He was a 2 person assist to get back into bed , then he fell back to sleep. He is not in any acute distress and would like to rest at this time. - Constitutional Vitals: Temp Pulse Resp BP Pulse Ox 98.3 F 66 16 96/61 97 05/16/17 07:32 05/16/17 07:32 05/16/17 07:32 05/16/17 07:32 05/16/17 07:32 General appearance: Present: A&O X 1 (not answering questions but remembered me from yesterday; oriented to person.), no acute distress. Absent: answers questions appropriately - Head Head exam: Present: atraumatic, normocephalic - Eye Eye exam: Present: PERRL, conjuntiva pink, sclera anicteric Pupils: Present: PERRL - Neck Neck exam general surgery: Present: supple, trachea midline. Absent: lymphadenopathy - Respiratory Respiratory exam: Present: CTAB. Absent: accessory muscle use, rales, respiratory distress, rhonchi, wheezes - Cardiovascular Cardiovascular exam: Present: RRR, +S1, +S2. Absent: diastolic murmur, gallop, rubs, systolic murmur - GI/Abdominal GI/Abdominal exam: Present: normal bowel sounds, soft, no peritoneal signs. Absent: distended, tenderness - Extremities Exam Extremities exam: Present: warm, radial pulses palpable and symmetrical. Absent : calf tenderness, cyanotic, pedal edema - Neurological Exam Neurological exam: Present: CN II-XII intact, no focal deficits, strengths equal and symetr throughout, speech deficit (chronic). Absent: pronater drift, facial droop - Expanded Neurological Exam Neurological exam expanded: Present: protecting the airway Patient oriented to: Present: person Speech: Present: garbled (chronic; intelligible at times) Neuro motor strength exam: LUE: 5, RUE: 5, LLE: 5, RLE: 5 Coma Scale Eye Opening: Spontaneous Coma Scale Motor Response: Obeys Commands Coma Scale Verbal Response: Incomprehensible Coma Scale Total: 12 - Skin Skin exam: Present: dry, intact, pallor, warm Internal Medicine: Result - Labs CBC & Chem 7: 05/16/17 06:38 05/16/17 06:38 Labs: Short CBC 05/16/17 Range/Units 06:38 WBC 6.0 (4.3-11.1) K/mcL Hgb 10.8 L (12.9-16.9) g/dL Hct 33.5 L (37.5-50.1) % Plt Count 86 L (140-400) K/mcL Neutrophils # 3.7 (1.6-8.9) K/mcL BMP 05/16/17 06:38 Sodium 139 Potassium 3.9 Chloride 107 Carbon Dioxide 26 BUN 7 L Creatinine 0.78 Glucose 101 H Calcium 8.1 L Liver Function 05/16/17 Range/Units 06:38 Total Bilirubin 0.3 (0.2-1.2) mg/dL Direct Bilirubin 0.2 (0.0-0.5) mg/dL AST 23 (5-34) Units/L ALT 8 (0-55) Units/L Alkaline Phosphatase 54 (38-126) Units/L Albumin 1.9 L (3.5-5.0) g/dL - Impressions Impressions Brain MRI 05/16/17 08:07 IMPRESSION: 1. No acute intracranial abnormality. Specifically, no acute infarction. 2. Diffuse parenchymal parenchymal volume loss. Sequela of mild chronic microvascular ischemic changes. D/ / Renea Bush MD / Renea Bush MD Interpreting Provider: Renea Bush MD Consult Discharge Plan - Plan Referrals: NONE,PCP [Primary Care Provider] -
[2017-05-16] MEDS: Divalproex (24 HR) 500 MG TABLET PO SCH (16:27)
[2017-05-16] MEDS: Ascorbic Acid 500 MG TABLET PO SCH (17:30)
[2017-05-16] MEDS: *HR* Rivaroxaban 10 MG TABLET PO SCH (17:31)
--- NOTE | 2017-05-16 18:12 | Neurology Progress Note ---
Date of Encounter: 05/16/17 Time of Encounter: 18:10 Assessment and Plan (1) Altered mental status Current Visit: Yes Status: Acute Ultimately I find no evidence of any acute process to explain mental status changes. He may possibly have had breakthrough seizure. His valproic acid level was slightly subtherapeutic at 48.34. The EEG reveals severe generalized encephalopathy which is commensurate with his Down syndrome. The MRI also shows significant atrophy. Most individuals with Down syndrome develop Alzheimer's and relatively life. Any mental status changes be treatable to this phenomenon. I would recommend a bolus of valproate 500 mg IV. Otherwise I will reevaluate him at your request. Qualifiers: Altered mental status type: unspecified Qualified Code(s): R41.82 - Altered mental status, unspecified Subjective Interval history: Chart review, patient seen. Currently sitting in bed with JDE DEVELOPER, and childcare aide with him. He appropriately resists trying to give blood. He does make eye contact when I interact with them. He does talk however his speech is difficult to discern. He moves all 4 extremities. He is not encephalopathic. EEG is abnormal revealing moderate/severe encephalopathy however there is no evidence of seizure activity identified. MRI scan of the brain reveals no evidence of an acute process, however does reveal significant cortical atrophy with compensatory ventricular dilatation. Objective - Constitutional Vitals: Temp Pulse Resp BP Pulse Ox 97.8 F 71 16 90/56 97 05/16/17 15:16 05/16/17 15:16 05/16/17 15:16 05/16/17 15:16 05/16/17 15:16 - Neurological Exam Additional comments: Neurologic examination is not changed from her previous assessment. He is awake and interactive. He has obvious significant cognitive deficits. However side contact and is interactive. He moves all 4 extremities. No involuntary movements are identified. Results - Laboratory Findings CBC and BMP: 05/16/17 06:38 05/16/17 06:38 Abnormal lab findings: Abnormal lab results RBC 3.30 M/mcL (4.19-5.50) L 05/16/17 06:38 Hgb 10.8 g/dL (12.9-16.9) L 05/16/17 06:38 Hct 33.5 % (37.5-50.1) L 05/16/17 06:38 MCV 101.5 fL (83.0-100.0) H 05/16/17 06:38 RDW 14.8 % (11.5-14.5) H 05/16/17 06:38 Plt Count 86 K/mcL (140-400) L 05/16/17 06:38 MPV 13.6 fL (9.4-12.4) H 05/16/17 06:38 Platelet Estimate Decreased (Normal) L 05/16/17 06:38 Immature Plt Fraction 15.9 % (1.1-6.1) H 05/16/17 06:38 BUN 7 mg/dL (8-26) L 05/16/17 06:38 Glucose 101 mg/dL (70-99) H 05/16/17 06:38 Calcium 8.1 mg/dL (8.6-10.8) L 05/16/17 06:38 Serum Total Protein 5.1 g/dL (6.0-8.3) L 05/16/17 06:38 Albumin 1.9 g/dL (3.5-5.0) L 05/16/17 06:38 Albumin/Globulin Ratio 0.6 (1.1-2.2) L 05/16/17 06:38 TSH 5.627 mcIU/mL (0.350-4.840) H 05/15/17 04:48 Urine Ketones Trace mg/dL (Negative) H 05/14/17 17:03 Valproic Acid 48.34 mcg/mL (50-100) L 05/16/17 13:37 Consult Discharge Plan - Plan Referrals: NONE,PCP [Primary Care Provider] -
[2017-05-16] MEDS ORDERED: Valproic Acid INJ 500 MG in 0.9 % Sodium Chloride 100 ML IVPB ONE (18:17)
[2017-05-17] MEDS ORDERED: *HR* Dextrose 50 % in Water (Syg) 50 ML SYRINGE ONE (07:39)
[2017-05-17 08:11] LABS: Basophils # 0.1 K/mcL (0.0-0.2); Basophils % 0.8 %; Eosinophils # 0.1 K/mcL (0.0-0.6); Eosinophils % 0.7 %; Hematocrit 33.6 % (37.5-50.1); Immature Granulocytes % 1.6 % (0-4); Lymphocytes # 1.3 K/mcL (0.6-4.6); Lymphocytes % 17.3 %; Mean Corpuscular HGB Conc 32.7 g/dL (31.6-35.5); Mean Corpuscular Hemoglobin 32.8 pg (28.0-33.3); Mean Corpuscular Volume 100.3 fL (83.0-100.0); Mean Platelet Volume 14.3 fL (9.4-12.4); Monocytes # 0.6 K/mcL (0.0-1.3); Monocytes % 7.9 %; Neutrophils # 5.3 K/mcL (1.6-8.9); Red Blood Count 3.35 M/mcL (4.19-5.50); Red Cell Distribution Width 14.6 % (11.5-14.5); Segmented Neutrophils % 71.7 %
[2017-05-17 08:12] LABS: Platelet Count 76 K/mcL (140-400)
[2017-05-17 08:44] LABS: Alanine Aminotransferase 11 Units/L (0-55); Albumin/Globulin Ratio 0.6 (1.1-2.2); Alkaline Phosphatase 66 Units/L (38-126); Aspartate Amino Transferase 17 Units/L (5-34); BUN/Creatinine Ratio 8 (6-26); Bilirubin,Direct 0.2 mg/dL (0.0-0.5); Bilirubin,Indirect 0.2 mg/dL (0.0-1.2); Bilirubin,Total 0.4 mg/dL (0.2-1.2); Calcium 8.4 mg/dL (8.6-10.8); Carbon Dioxide 27 mEq/L (19-29); Chloride 108 mEq/L (98-109); Globulin 3.1 g/dL (2.4-3.5); Glucose 72 mg/dL (70-99); Magnesium 1.8 mg/dL (1.6-2.6); Osmolality,Calculated 286 (280-300); Potassium 3.6 mEq/L (3.5-4.5); Sodium 140 mEq/L (136-145); Total Protein 5.1 g/dL (6.0-8.3); eGFR For African Americans > 60 (> 60); eGFR For Non-African Americans > 60 (> 60)
[2017-05-17 08:45] LABS: Blood Urea Nitrogen 5 mg/dL (8-26)
[2017-05-17] MEDS: chlorproMAZINE 25 MG TABLET PO SCH ×2 (13:00→21:50)
[2017-05-17] MEDS: Divalproex Sodium 125 MG CAPSULE PO SCH (13:00)
[2017-05-17] MEDS: Loratadine 10 MG TABLET PO SCH (13:00)
[2017-05-17] MEDS: Cholecalciferol (D-3) 1,000 UNIT TABLET PO SCH ×2 (13:01→18:05)
[2017-05-17 15:10] LABS: Valproate Free 25 ug/mL (7-23); Valproate Total 74 ug/mL (50-125)
--- NOTE | 2017-05-17 15:32 | Internal Med Progress Note ---
Date of Encounter: 05/17/17 Time of Encounter: 09:30 (and 1430) - Assessment and plan (1) Expressive aphasia Current Visit: Yes Status: Acute Assessment and plan: At this point, it is difficult to ascertain what the patient's true baseline is prior to presentation. The can repairer of the home care group [facility] told me 2 days ago that the patient was independently ambulating, feeding, dressing himself however his trouble locator test desk Aggie from yesterday stated that she has had to help him out quite a bit and states that over the last couple months, he has had a lot of difficulty getting around the house. I then spoke to another caregiver of his, Chapin, today. Chapin states that he is with the patient 3 or 4 days out of the week so he knows him well. He states that he is worried about him. He states that over the past couple months, patient has not been eating very well and is getting weaker and seems to be trending downhill. At this point, I would believe Chapin and Aggie. Patient does appear to have decompensated over the past month or so. He has had positive weight loss. Unclear causation at this time. No acute infectious etiologies present. Chest x-ray negative. Head CT negative. Urinalysis negative. Brain MRI negative for acute processes. EEG consistent with his baseline according to neurology. Plan at this point is to transfer the patient inpatient rehabilitation. Chapin agrees with the stating he felt he could not even get the patient into the car today by himself. Per social work, he will be placed at the earliest on Friday. 05/16/17 Patient appears to be progressing back to his baseline. When his family presented yesterday, he became much more alert and interactive. His family states that he was living with a roommate until February. After his roommate moved out, patient has been progressively losing weight. Concern for depression now that acute infectious or neurological issues have essentially been ruled out. MRI ruled out acute CVA. No signs of an acute infection. He has 24 hour care at home, but he has regressed from his norm. Prior to presentation, patient was ambulatory and able to feed and dress himself. OT PT consultations have been placed. Disposition unclear at this time. Patient is currently too drowsy to discuss plan of care- presumably from lorazepam given to him prior to his MRI this am. Neurology on board. EEG abnormal; no signs of seizure-like activity since arrival. 05/15/17 On examination, patient appears as if he is attempting to speak but is unable to do so. He is able to track movement with his eyes however he is unable to follow any other commands. At his baseline, he is very high functioning and is able to dress himself, feed himself and able to communicate effectively. He currently is nowhere near his baseline. I am concerned for possible acute CVA. MRI has been ordered. Initial concern was that the patient may be having seizures. He has a seizure disorder and has recently been taken off his Keppra approximately 1.5 weeks ago but he remains on his Depakote- levels drawn this am and are pending. He was able to track movement which makes seizure less likely however EEG ordered and consultation to neurology was placed. There does not appear to be any indications of an acute infectious process. Chest x- ray negative. Urinalysis negative. Tox screen negative. Head CT negative. No leukocytosis. Of note, he is on Xarelto for DVT. Will await MRI that has been ordered STAT. ITS Impressions Chest X-Ray 05/14/17 16:19 IMPRESSION: No acute cardiopulmonary disease. D/ / Salvador Keane MD / Salvador Keane MD Interpreting Provider: Salvador Keane MD Head CT 05/14/17 19:17 IMPRESSION: No acute intracranial hemorrhage or mass effect. Advanced atrophy for patient's age, likely related to history of Down syndrome. Mild patchy white matter hypodensity is favored to represent chronic small vessel ischemia. D/ / Salvador Slade MD / Salvador Slade MD Interpreting Provider: Salvador Slade MD (2) Altered mental status Current Visit: Yes Status: Acute Assessment and plan: See prior note for expressive aphasia (3) Acute encephalopathy Current Visit: Yes Status: Inactive Assessment and plan: Less likely given his clinical presentation. CVA ruled out. Concern for worsening depression/mood issues. Valproic acid levels borderline low and patient was given a one-time bolus dose of IV valproic acid per neurology. Neurology have signed off and cleared him for outpatient follow-up. OT and PT consultations are pending however the patient appears to be at least a 2 person maximal stress at this time so the likely recommendation will be for ECF placement. He is not safe to be discharged back to his home even though he has 24-hour caregivers, he needs inpatient rehabilitation at this time. Given the decline in the patient's condition, MRI negative, EEG unremarkable for acute processes. No seizure-like activity since admission. We will obtain an abdominal CT as the patient cannot display or describe his symptoms. Suspect weight loss and decline is behavior related but will rule out intra-abdominal processes. (4) Generalized weakness Current Visit: Yes Status: Acute Assessment and plan: See prior note for expressive aphasia. (5) Developmental delay, moderate Current Visit: Yes Status: Chronic Assessment and plan: Very high functioning MRDD patient. Reportedly although we have had mixed reports, patient was essentially independent and would feed and dress himself and ambulate without assistance approximately 2 months ago. Since that time, patient has trended down and the etiology of that is unknown at this time. He did have a roommate leave approximately 2 months ago so this could be depression. There is not any acute infectious processes identified. Patient has been complaining of pain are acting like he is in pain. We will obtain an abdominal CT as the patient cannot convey his symptoms very well. Neurologic processes essentially ruled out with negative MRI and unremarkable EEG. Awaiting placement. (6) Subclinical hypothyroidism Current Visit: Yes Status: Acute Assessment and plan: TSH borderline elevated, T4 normal, follow-up outpatient (7) Hypothyroid Current Visit: Yes Status: Chronic (8) Dehydration Current Visit: Yes Status: Acute Assessment and plan: Mildly dehydrated on examination, continue maintenance IV fluids. (9) Seizure disorder Current Visit: Yes Status: Chronic Assessment and plan: Has been taken off his Keppra 1.5 weeks ago. Remains on Depakote-very mildly subtherapeutic levels. Neurology on board. EEG abnormal but consistent with his baseline according to neurology. One-time dose IV bolus of valproic acid given. (10) DVT prophylaxis Current Visit: Yes Status: Acute Assessment and plan: on Xarelto - Subjective Interval history: Patient seen and examined earlier this morning and on examination, patient was asleep and would briefly wake up but then falls quickly back to sleep. Verified with his caretakers that the patient is an extremely heavy sleeper. Respirations were even and easy. I then seen in reevaluate patient after lunch and at this time, one of his caregivers Chapin was at the bedside. This time, patient remained drowsy but was able to open his eyes and smile. He did interact with Chapin as well. Chapin states the patient ate most of his lunch. - Constitutional Vitals: Temp Pulse Resp BP Pulse Ox 98.1 F 68 15 101/66 94 05/17/17 15:18 05/17/17 15:18 05/17/17 15:18 05/17/17 15:18 05/17/17 15:18 General appearance: Present: A&O X 1 (knew me and trouble locator test desk Chapin. smiles and answers simple questions), pleasant, no acute distress. Absent: answers questions appropriately - Head Head exam: Present: atraumatic, normocephalic - Eye Eye exam: Present: EOMI, PERRL, conjuntiva pink, sclera anicteric Pupils: Present: PERRL - Neck Neck exam general surgery: Present: supple, trachea midline. Absent: lymphadenopathy - Respiratory Respiratory exam: Present: rhonchi. Absent: accessory muscle use, rales, respiratory distress, wheezes - Cardiovascular Cardiovascular exam: Present: RRR, +S1, +S2. Absent: diastolic murmur, gallop, rubs, systolic murmur - GI/Abdominal GI/Abdominal exam: Present: normal bowel sounds, soft, no peritoneal signs. Absent: distended, tenderness - Extremities Exam Extremities exam: Present: warm, radial pulses palpable and symmetrical. Absent : calf tenderness, cyanotic, pedal edema - Neurological Exam Neurological exam: Present: altered, CN II-XII intact, no focal deficits, strengths equal and symetr throughout, speech deficit (chornic). Absent: pronater drift, facial droop - Skin Skin exam: Present: dry, intact, pallor, warm Internal Medicine: Result - Labs CBC & Chem 7: 05/17/17 07:39 05/17/17 07:39 Labs: Short CBC 05/17/17 Range/Units 07:39 WBC 7.4 (4.3-11.1) K/mcL Hgb 11.0 L (12.9-16.9) g/dL Hct 33.6 L (37.5-50.1) % Plt Count 76 L (140-400) K/mcL Neutrophils # 5.3 (1.6-8.9) K/mcL BMP 05/17/17 07:39 Sodium 140 Potassium 3.6 Chloride 108 Carbon Dioxide 27 BUN 5 L Creatinine 0.66 L Glucose 72 Calcium 8.4 L Liver Function 05/17/17 Range/Units 07:39 Total Bilirubin 0.4 (0.2-1.2) mg/dL Direct Bilirubin 0.2 (0.0-0.5) mg/dL AST 17 (5-34) Units/L ALT 11 (0-55) Units/L Alkaline Phosphatase 66 (38-126) Units/L Albumin 2.0 L (3.5-5.0) g/dL - Impressions Impressions Abdomen/Pelvis CT 05/16/17 17:00 IMPRESSION: Small amount of pericolic gutter and pelvic free fluid as well as lower abdominal and pelvic mesenteric edema. Distended urinary bladder which contains a small amount of nondependent gas, presumably related to recent instrumentation. Correlation for cystitis is recommended. Evidence of left iliopsoas bursitis as well as left hip joint effusion. Bilateral nephrolithiasis. D/ / Simin Patel Cha, MD / Simin Patel Cha, MD Interpreting Provider: Simin Patel Cha, MD Consult Discharge Plan - Plan Referrals: NONE,PCP [Primary Care Provider] -
[2017-05-17] MEDS: *HR* Rivaroxaban 10 MG TABLET PO SCH (18:05)
[2017-05-17] MEDS: Ascorbic Acid 500 MG TABLET PO SCH (18:05)
[2017-05-17] MEDS: Divalproex (24 HR) 500 MG TABLET PO SCH (18:05)
[2017-05-18] MEDS: Divalproex Sodium 125 MG CAPSULE PO SCH (09:41)
[2017-05-18] MEDS: chlorproMAZINE 25 MG TABLET PO SCH ×2 (09:43→21:31)
[2017-05-18] MEDS: Cholecalciferol (D-3) 1,000 UNIT TABLET PO SCH ×2 (09:43→17:43)
[2017-05-18] MEDS: Loratadine 10 MG TABLET PO SCH (09:43)
[2017-05-18 14:55] LABS: Valproate Free 9 ug/mL (7-23); Valproate Total 38 ug/mL (50-125)
[2017-05-18] MEDS: Divalproex (24 HR) 500 MG TABLET PO SCH (16:02)
[2017-05-18] MEDS: *HR* Rivaroxaban 10 MG TABLET PO SCH (17:42)
[2017-05-18] MEDS: Ascorbic Acid 500 MG TABLET PO SCH (17:43)
--- NOTE | 2017-05-18 18:18 | Internal Med Progress Note ---
Date of Encounter: 05/18/17 Time of Encounter: 09:30 - Assessment and plan (1) Expressive aphasia Current Visit: Yes Status: Acute Assessment and plan: Patient is much more alert and interactive and smiling more today. He however, continues to be nonverbal. He does make sounds but is not answering questions. Increased somnolence over the last couple days could have been medication related. 2 days ago, he had Versed before his MRI. The day after that, he had a loading dose of IV Depakote. Today, he appears much more interactive. No acute distress. 05/17/17 At this point, it is difficult to ascertain what the patient's true baseline is prior to presentation. The molecular biology director of the home care group [facility] told me 2 days ago that the patient was independently ambulating, feeding, dressing himself however his kayak maker Aggie from yesterday stated that she has had to help him out quite a bit and states that over the last couple months, he has had a lot of difficulty getting around the house. I then spoke to another caregiver of his, Chapin, today. Chapin states that he is with the patient 3 or 4 days out of the week so he knows him well. He states that he is worried about him. He states that over the past couple months, patient has not been eating very well and is getting weaker and seems to be trending downhill. At this point, I would believe Chapin and Aggie. Patient does appear to have decompensated over the past month or so. He has had positive weight loss. Unclear causation at this time. No acute infectious etiologies present. Chest x-ray negative. Head CT negative. Urinalysis negative. Brain MRI negative for acute processes. EEG consistent with his baseline according to neurology. Plan at this point is to transfer the patient inpatient rehabilitation. Chapin agrees with the stating he felt he could not even get the patient into the car today by himself. Per social work, he will be placed at the earliest on Friday. 05/16/17 Patient appears to be progressing back to his baseline. When his family presented yesterday, he became much more alert and interactive. His family states that he was living with a roommate until February. After his roommate moved out, patient has been progressively losing weight. Concern for depression now that acute infectious or neurological issues have essentially been ruled out. MRI ruled out acute CVA. No signs of an acute infection. He has 24 hour care at home, but he has regressed from his norm. Prior to presentation, patient was ambulatory and able to feed and dress himself. OT PT consultations have been placed. Disposition unclear at this time. Patient is currently too drowsy to discuss plan of care- presumably from lorazepam given to him prior to his MRI this am. Neurology on board. EEG abnormal; no signs of seizure-like activity since arrival. 05/15/17 On examination, patient appears as if he is attempting to speak but is unable to do so. He is able to track movement with his eyes however he is unable to follow any other commands. At his baseline, he is very high functioning and is able to dress himself, feed himself and able to communicate effectively. He currently is nowhere near his baseline. I am concerned for possible acute CVA. MRI has been ordered. Initial concern was that the patient may be having seizures. He has a seizure disorder and has recently been taken off his Keppra approximately 1.5 weeks ago but he remains on his Depakote- levels drawn this am and are pending. He was able to track movement which makes seizure less likely however EEG ordered and consultation to neurology was placed. There does not appear to be any indications of an acute infectious process. Chest x- ray negative. Urinalysis negative. Tox screen negative. Head CT negative. No leukocytosis. Of note, he is on Xarelto for DVT. Will await MRI that has been ordered STAT. ITS Impressions Chest X-Ray 05/14/17 16:19 IMPRESSION: No acute cardiopulmonary disease. D/ / Salvador Keane MD / Salvador Keane MD Interpreting Provider: Salvador Keane MD Head CT 05/14/17 19:17 IMPRESSION: No acute intracranial hemorrhage or mass effect. Advanced atrophy for patient's age, likely related to history of Down syndrome. Mild patchy white matter hypodensity is favored to represent chronic small vessel ischemia. D/ / Salvador Slade MD / Salvador Slade MD Interpreting Provider: Salvador Slade MD (2) Altered mental status Current Visit: Yes Status: Acute Assessment and plan: See prior note for expressive aphasia (3) Acute encephalopathy Current Visit: Yes Status: Inactive Assessment and plan: Less likely given his clinical presentation. CVA ruled out. Concern for worsening depression/mood issues. Valproic acid levels borderline low and patient was given a one-time bolus dose of IV valproic acid per neurology. Neurology have signed off and cleared him for outpatient follow-up. OT and PT consultations are pending however the patient appears to be at least a 2 person maximal stress at this time so the likely recommendation will be for ECF placement. He is not safe to be discharged back to his home even though he has 24-hour caregivers, he needs inpatient rehabilitation at this time. Given the decline in the patient's condition, MRI negative, EEG unremarkable for acute processes. No seizure-like activity since admission. Abdominal CT unremarkable for acute processes other than mild mesenteric edema. Patient's abdomen is soft and nontender throughout with positive bowel sounds. Also showing evidence of left hip joint effusion with iliopsoas bursitis. Suspect weight loss and decline is behavior related. ITS Impressions Chest X-Ray 05/14/17 16:19 IMPRESSION: No acute cardiopulmonary disease. D/ / Salvador Keane MD / Salvador Keane MD Interpreting Provider: Salvador Keane MD Head CT 05/14/17 19:17 IMPRESSION: No acute intracranial hemorrhage or mass effect. Advanced atrophy for patient's age, likely related to history of Down syndrome. Mild patchy white matter hypodensity is favored to represent chronic small vessel ischemia. D/ / Salvador Slade MD / Salvador Slade MD Interpreting Provider: Salvador Slade MD Brain MRI 05/16/17 08:07 IMPRESSION: 1. No acute intracranial abnormality. Specifically, no acute infarction. 2. Diffuse parenchymal parenchymal volume loss. Sequela of mild chronic microvascular ischemic changes. D/ / Renea Bush MD / Renea Bush MD Interpreting Provider: Renea Bush MD Abdomen/Pelvis CT 05/16/17 17:00 IMPRESSION: Small amount of pericolic gutter and pelvic free fluid as well as lower abdominal and pelvic mesenteric edema. Distended urinary bladder which contains a small amount of nondependent gas, presumably related to recent instrumentation. Correlation for cystitis is recommended. Evidence of left iliopsoas bursitis as well as left hip joint effusion. Bilateral nephrolithiasis. D/ / Simin Patel Cha, MD / Simin Patel Cha, MD Interpreting Provider: Simin Patel Cha, MD (4) Generalized weakness Current Visit: Yes Status: Acute Assessment and plan: See prior note for expressive aphasia. (5) Developmental delay, moderate Current Visit: Yes Status: Chronic Assessment and plan: Very high functioning MRDD patient. Reportedly, although we have had mixed reports, patient was essentially independent and would feed and dress himself and ambulate without assistance approximately 2 months ago. Since that time, patient has trended down and the etiology of that is unknown at this time. He did have a roommate leave approximately 2 months ago so this could be depression. There is not any acute infectious processes identified. Patient has not been complaining of pain or acting like he is in pain. Abdominal CT essentially unremarkable. Neurologic processes essentially ruled out with negative MRI and unremarkable EEG. Awaiting placement. (6) Subclinical hypothyroidism Current Visit: Yes Status: Acute Assessment and plan: TSH borderline elevated, T4 normal, follow-up outpatient (7) Hypothyroid Current Visit: Yes Status: Chronic (8) Dehydration Current Visit: Yes Status: Acute Assessment and plan: Mildly dehydrated on examination, continue maintenance IV fluids. His by mouth intake is improving. (9) Seizure disorder Current Visit: Yes Status: Chronic Assessment and plan: Has been taken off his Keppra 1.5 weeks ago. Remains on Depakote-very mildly subtherapeutic levels. Neurology on board. EEG abnormal but consistent with his baseline according to neurology. One-time dose IV bolus of valproic acid given. (10) DVT prophylaxis Current Visit: Yes Status: Acute Assessment and plan: on Xarelto - Subjective Interval history: Patient seen and examined. On examination, patient's is sitting upright in his bed. He is alert and interactive. He does follow commands and smiles is currently not verbal. He does not appear to be in any pain. He was able to take his medications well. He ate a large portion of his breakfast with assistance. - Constitutional Vitals: Temp Pulse Resp BP Pulse Ox 98.0 F 77 14 93/54 100 05/18/17 15:49 05/18/17 15:49 05/18/17 15:49 05/18/17 15:49 05/18/17 15:49 General appearance: Present: A&O X 1 (knew me and his nurse. smiles; not answering questions), pleasant, no acute distress. Absent: answers questions appropriately - Head Head exam: Present: atraumatic, normocephalic - Eye Eye exam: Present: PERRL, conjuntiva pink, sclera anicteric Pupils: Present: PERRL - Neck Neck exam general surgery: Present: supple, trachea midline. Absent: lymphadenopathy - Respiratory Respiratory exam: Present: rhonchi (good aeration; referred from upper airway). Absent: accessory muscle use, CTAB, rales, respiratory distress, wheezes - Cardiovascular Cardiovascular exam: Present: RRR, +S1, +S2. Absent: diastolic murmur, gallop, rubs, systolic murmur - GI/Abdominal GI/Abdominal exam: Present: normal bowel sounds, soft, no peritoneal signs. Absent: distended, tenderness - Extremities Exam Extremities exam: Present: warm, radial pulses palpable and symmetrical. Absent : calf tenderness, cyanotic, pedal edema - Neurological Exam Neurological exam: Present: alert, CN II-XII intact, no focal deficits, strengths equal and symetr throughout, speech deficit. Absent: pronater drift, facial droop - Skin Skin exam: Present: dry, intact, pallor, warm Internal Medicine: Result - Labs CBC & Chem 7: 05/17/17 07:39 05/17/17 07:39 Consult Discharge Plan - Plan Referrals: NONE,PCP [Primary Care Provider] -
[2017-05-19 07:29] LABS: Valproate % Free 34 % (5-18)
[2017-05-19 08:07] LABS: Valproate % Free 24 % (5-18)
[2017-05-19] MEDS: Divalproex Sodium 125 MG CAPSULE PO SCH (09:48)
[2017-05-19] MEDS: Loratadine 10 MG TABLET PO SCH (09:48)
[2017-05-19] MEDS: Cholecalciferol (D-3) 1,000 UNIT TABLET PO SCH ×2 (09:49→17:01)
[2017-05-19] MEDS: chlorproMAZINE 25 MG TABLET PO SCH (09:49)
[2017-05-19 16:43] LABS: Hepatitis A Antibody IgM Nonreactive (Nonreactive); Hepatitis B Core IgM Nonreactive (Nonreactive); Hepatitis B Surface Antigen Nonreactive (Nonreactive)
[2017-05-19 16:51] LABS: Hepatitis C Virus Antibody Equivocal (Nonreactive)
[2017-05-19] MEDS: Divalproex (24 HR) 500 MG TABLET PO SCH (17:00)
[2017-05-19] MEDS: *HR* Rivaroxaban 10 MG TABLET PO SCH (17:01)
[2017-05-19] MEDS: Ascorbic Acid 500 MG TABLET PO SCH (17:01)
--- NOTE | 2017-05-19 18:06 | Discharge Summary ---
Date of Encounter: 05/19/17 Time of Encounter: 09:30 (and 1230) - Discharge Diagnosis (1) Expressive aphasia Priority: Primary Status: Acute Comments: Patient's ability to answer questions and interact varied daily. Overall, this is consistent with his baseline although his baseline has been trending down over the past several months. Sending to inpatient rehabilitation. Acute processes ruled out. (2) Altered mental status Priority: Primary Status: Acute Comments: See prior note for expressive aphasia Qualifiers: Altered mental status type: unspecified Qualified Code(s): R41.82 - Altered mental status, unspecified (3) Acute encephalopathy Priority: Primary Status: Inactive Comments: Less likely given his clinical presentation. CVA ruled out. Concern for worsening depression/mood issues. Valproic acid levels borderline low and patient was given a one-time bolus dose of IV valproic acid per neurology. Neurology have signed off and cleared him for outpatient follow-up. Sending to inpatient rehabilitation (4) Generalized weakness Priority: Primary Status: Acute (5) Developmental delay, moderate Priority: Secondary Status: Chronic Comments: Very high functioning MRDD patient. Reportedly, although we have had mixed reports, patient was essentially independent and would feed and dress himself and ambulate without assistance approximately 2 months ago. Since that time, patient has trended down and the etiology of that is unknown at this time. He did have a roommate leave approximately 2 months ago so this could be depression. There are not any acute infectious processes identified. Patient has not been complaining of pain or acting like he is in pain. Abdominal CT essentially unremarkable. Neurologic processes essentially ruled out with negative MRI and unremarkable EEG. Sending the inpatient rehabilitation (6) Subclinical hypothyroidism Priority: Primary Status: Acute Comments: TSH borderline elevated, T4 normal, follow-up outpatient (7) Hypothyroid Priority: Secondary Status: Chronic Qualifiers: Hypothyroidism type: acquired Qualified Code(s): E03.9 - Hypothyroidism, unspecified (8) Dehydration Priority: Primary Status: Acute Comments: PO intake while admitted varied greatly. Sending to inpatient rehabilitation. Will continue ensure clear apple, TID. also needs assistance with feeds (9) Seizure disorder Priority: Secondary Status: Chronic Comments: Has been taken off his Keppra 1.5 weeks ago. Remains on Depakote-very mildly subtherapeutic levels. Neurology on board. EEG abnormal but consistent with his baseline according to neurology. One-time dose IV bolus of valproic acid given. (10) DVT prophylaxis Priority: Primary Status: Acute Comments: on Xarelto - Discharge Medications Prescriptions: Nut.tx.impaired Digest Fxn [Ensure Clear] 1 bottle PO TID #90 can Home Medications: Acetaminophen [Tylenol] 650 mg PO Q4-6H PRN 05/14/17 [History] Ascorbate Calcium [Vitamin C] 500 mg PO QPM 05/14/17 [History] Benztropine [Cogentin] 0.5 mg PO QAM 05/14/17 [History] Calcium Carbonate/Vitamin D3 [Calcium 600-Vit D3 400 Tablet] 1 each PO BID 05/14 [History] Chlorpromazine HCl 25 mg PO QAM 05/14/17 [History] Chlorpromazine HCl 150 mg PO HS 05/14/17 [History] Cholecalciferol (Vitamin D3) [Vitamin D3] 2,000 unit PO QPM 05/14/17 [History] Divalproex (24 HR) [Depakote ER (24 HR)] 1,000 mg PO 1600 05/14/17 [History] Divalproex Sodium [Depakote Sprinkle] 375 mg PO QAM 05/14/17 [History] Docusate [Colace] 200 mg PO QPM 05/14/17 [History] Guaifenesin [Mucinex] 600 mg PO Q12H PRN 05/14/17 [History] Levothyroxine [Synthroid] 100 mcg PO QAM 05/14/17 [History] Loratadine [Claritin] 10 mg PO QAM 05/14/17 [History] Mag Hydrox/Al Hydrox/Simeth [Antacid Suspension] 30 ml PO Q4H PRN 05/14/17 [ History] Mineral Oil/Petrolat,Wht/Water [Lubriderm Daily Moisture Lot] 1 appl TP TID PRN 05/14/17 [History] Ondansetron [Zofran ODT] 8 mg SL Q6H PRN 05/14/17 [History] Polyethylene Glycol 3350 [MiraLAX] 17 gm PO QAM 05/14/17 [History] Rivaroxaban [Xarelto] 20 mg PO QPM 05/14/17 [History] Tamsulosin [Flomax] 0.4 mg PO QAM 05/14/17 [History] Nut.tx.impaired Digest Fxn [Ensure Clear] 1 bottle PO TID #90 can 05/19/17 [Rx] Allergies/Adverse Reactions: 3 Allergy/AdvReac Type Severity Reaction Status Date / Time No Known Allergies Allergy Verified 05/14/17 15:24 Procedures/tests Complete & Pending: Procedures Performed prior 72 hours Category Date Time Status CT abd pelvis wo no iv no oral [CT] Routine Cat Scan 05/17/17 15:42 Completed Date of admission: 05/15/17 14:04 Primary care physician: PCP NONE Consults: 05/16/17 13:59 Consult to Occupational Therapy [CONS] Routine Comment: Evaluate, develop and implement POC Reason for Consult: MRDD, was able to feed and dress 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 please eval and advise, thanks 05/16/17 15:14 Consult to Nutrition [CONS] Routine Comment: lost 20# in 2 mos; MRDD- decompensating Consulting Provider: NUTRITION Reason for Dietary Consult: PO Supplementation Discharging clinician: Mihaela Key Anticipated date of discharge: 05/19/17 (sending to [facility]) - Patient Status Disposition: Transfer Inpatient Rehab Fac Condition: Fair Functional capacity at discharge: independent ambulation Overall status at discharge: patient is progressing back to baseline - Discharge Instructions Instructions: Hypothyroidism (DC) Follow Up With: Kamla Solomon MD [Non-Partnered Physician] - Jackson Simon DO [Partnered Physician] - Additional Instructions: Follow-up with primary care provider and neurologist within 2-3 weeks - Diet and Activity Activity: as per physical therapy, increase activity as tolerated Diet: other (Soft food, thin liquids, Ensure 3 times a day) Hospital course: Mr. Sanchez is a 52 year old male with past medical history of MRDD Down syndrome , prior DVT on Xarelto, hyperlipidemia, hypertension, possible seizure disorder. Patient presented to the emergency department chief complaint of altered mental status. Patient resides in a home and he has 24-hour caregivers. His caregiver reported he had a 3 day history of altered mental status, not acting like himself, decreased responsiveness, confusion and generalized weakness. On the morning of presentation, he was unable to feed himself. Patient with a history of questionable seizure disorder and was taken off his Keppra 1.5 weeks prior to presentation but was kept on his valproate. Workup in the emergency department unremarkable. Chest x-ray negative. Head CT negative. Urinalysis negative. Tox screen negative. Patient was admitted to the hospitalist service for further evaluation and management. Neurology was brought on board. Initially during his admission, patient would lie supine in bed and would blankly stare. He would not answer questions or follow commands. He would track however with his eyes making seizure less likely. Concern is for possible acute CVA so brain MRI was ordered which was unremarkable for acute processes. Acute CVA ruled out. There did not appear to be any acute infectious processes. Patient had 2 caregivers, the synthetic resin operator of the caregiver facility, and his brother/guardian weigh-in during this admission. Unfortunately, the patient's baseline functioning levels deferred between all of these caregivers. The synthetic resin operator of the caregiver facility, Nahid, stated that the patient just prior to presentation that himself, dress himself, and independently ambulated. His 2 caregivers however Chapin and Aggie both stated that the patient has not been feeding himself for a couple months and has really trended down and has been less and less independent over the past couple months. Unclear causation at this time. One of his roommates did move out in February which could be a contributing factor to the patient's decreased by mouth intake and decline. He had a extensive workup during this admission without acute infectious processes uncovered. Acute CVA ruled out. No seizure- like activity. Patient was seen by neurology who cleared him for outpatient follow-up. He was seen by speech therapy for possible aspiration but speech therapy recommended soft food and thin liquids. He was seen by nutrition who recommended Ensure supplementation. His caregivers were also concerned that he may have issues going on in his stomach given that he has unintentionally lost 20 pounds over the last couple months. Abdominal CT mostly unremarkable with mild mesenteric edema and possible left-sided bursitis. Patient's abdomen was soft and nontender as was his left hip. He was able to tolerate a regular diet while admitted. His by mouth intake very greatly dated today which his caregiver states is common for him. He was seen and evaluated by occupational and physical therapy both of whom recommended inpatient rehabilitation. Initially, the synthetic resin operator of the caregiver facility Nahid wanted to take him home however this patient clearly needs inpatient rehabilitation. EEG abnormal but consistent with his baseline according to neurology. One-time dose IV bolus of valproic acid given as his upper acid level was mildly subtherapeutic. Overall , patient's mentation waxed and waned during this admission but the more comfortable he became with the staff, the more verbal he would become and the more interactive he would become. He was discharged to inpatient rehabilitation at [facility] in stable condition with close outpatient follow-up recommended. ITS Impressions Chest X-Ray 05/14/17 16:19 IMPRESSION: No acute cardiopulmonary disease. D/ / Salvador Keane MD / Salvador Keane MD Interpreting Provider: Salvador Keane MD Head CT 05/14/17 19:17 IMPRESSION: No acute intracranial hemorrhage or mass effect. Advanced atrophy for patient's age, likely related to history of Down syndrome. Mild patchy white matter hypodensity is favored to represent chronic small vessel ischemia. D/ / Salvador Slade MD / Salvador Slade MD Interpreting Provider: Salvador Slade MD Brain MRI 05/16/17 08:07 IMPRESSION: 1. No acute intracranial abnormality. Specifically, no acute infarction. 2. Diffuse parenchymal parenchymal volume loss. Sequela of mild chronic microvascular ischemic changes. D/ / Renea Bush MD / Renea Bush MD Interpreting Provider: Renea Bush MD Abdomen/Pelvis CT 05/16/17 17:00 IMPRESSION: Small amount of pericolic gutter and pelvic free fluid as well as lower abdominal and pelvic mesenteric edema. Distended urinary bladder which contains a small amount of nondependent gas, presumably related to recent instrumentation. Correlation for cystitis is recommended. Evidence of left iliopsoas bursitis as well as left hip joint effusion. Bilateral nephrolithiasis. D/ / Simin Patel Cha, MD / Simin Patel Cha, MD Interpreting Provider: Simin Patel Cha, MD Date of procedure: 05/15/17 EEG Procedure: Routine EEG Impressions: This EEG recording is abnormal and is consistent with a moderate to severe generalized encephalopathy. There is no evidence of epileptiform activity identified during the study. Comment: Etiologies consistent with this interpretation might include toxic, metabolic, postictal, degenerative, congenital. A normal EEG does not preclude a diagnosis of seizure or epilepsy. If the clinical suspicion for seizure activity is high, serial EEGs or perhaps a prolonged recording may increase the yield. Please correlate clinically. 2 Documented By: Jackson Simon DO Signed By: <Electronically signed by Jackson Simon> 05/15/17 1649 - Time Spent with Patient Total time spent providing and/or coordinating discharge services: - Constitutional Vitals: Temp Pulse Resp BP Pulse Ox 98.0 F 89 15 110/69 92 05/19/17 15:24 05/19/17 15:24 05/19/17 15:24 05/19/17 15:24 05/19/17 15:24 General appearance: Present: A&O X 1 (knew me and his nurse. smiles; not answering questions in the am- more alert as day wears on), pleasant, no acute distress. Absent: answers questions appropriately - Head Head exam: Present: atraumatic, normocephalic - Eye Eye exam: Present: PERRL, conjuntiva pink, sclera anicteric Pupils: Present: PERRL - Neck Neck exam general surgery: Present: supple, trachea midline. Absent: lymphadenopathy - Respiratory Respiratory exam: Present: rhonchi. Absent: accessory muscle use, rales, respiratory distress, wheezes - Cardiovascular Cardiovascular exam: Present: RRR, +S1, +S2. Absent: diastolic murmur, gallop, rubs, systolic murmur - GI/Abdominal GI/Abdominal exam: Present: normal bowel sounds, soft, no peritoneal signs. Absent: distended, tenderness - Extremities Exam Extremities exam: Present: warm, radial pulses palpable and symmetrical. Absent : calf tenderness, cyanotic, pedal edema - Neurological Exam Neurological exam: Present: alert, altered, CN II-XII intact, no focal deficits , strengths equal and symetr throughout, speech deficit (chronic). Absent: pronater drift, facial droop - Skin Skin exam: Present: dry, intact, pallor, warm
--- NOTE | 2017-05-19 18:53 | Physician Discharge Referral ---
ExtendedCare Referral Info Transfer To: [facility] Provider in Charge: Tucker Key CNP Provider in Charge after Transfer: PCP Institutional Level of Care: Skilled - Diagnosis (1) Expressive aphasia Priority: Primary Status: Acute (2) Altered mental status Priority: Primary Status: Acute (3) Acute encephalopathy Priority: Primary Status: Inactive (4) Generalized weakness Priority: Primary Status: Acute (5) Developmental delay, moderate Priority: Secondary Status: Chronic (6) Subclinical hypothyroidism Priority: Primary Status: Acute (7) Hypothyroid Priority: Secondary Status: Chronic (8) Dehydration Priority: Primary Status: Acute (9) Seizure disorder Priority: Secondary Status: Chronic (10) DVT prophylaxis Priority: Primary Status: Acute Prognosis: Good Aware of Diagnosis: Patient Aware of Prognosis: Patient - Transfer Medications Prescriptions: Nut.tx.impaired Digest Fxn [Ensure Clear] 1 bottle PO TID #90 can Home Medications: Acetaminophen [Tylenol] 650 mg PO Q4-6H PRN 05/14/17 [History] Ascorbate Calcium [Vitamin C] 500 mg PO QPM 05/14/17 [History] Benztropine [Cogentin] 0.5 mg PO QAM 05/14/17 [History] Calcium Carbonate/Vitamin D3 [Calcium 600-Vit D3 400 Tablet] 1 each PO BID 05/14 [History] Chlorpromazine HCl 25 mg PO QAM 05/14/17 [History] Chlorpromazine HCl 150 mg PO HS 05/14/17 [History] Cholecalciferol (Vitamin D3) [Vitamin D3] 2,000 unit PO QPM 05/14/17 [History] Divalproex (24 HR) [Depakote ER (24 HR)] 1,000 mg PO 1600 05/14/17 [History] Divalproex Sodium [Depakote Sprinkle] 375 mg PO QAM 05/14/17 [History] Docusate [Colace] 200 mg PO QPM 05/14/17 [History] Guaifenesin [Mucinex] 600 mg PO Q12H PRN 05/14/17 [History] Levothyroxine [Synthroid] 100 mcg PO QAM 05/14/17 [History] Loratadine [Claritin] 10 mg PO QAM 05/14/17 [History] Mag Hydrox/Al Hydrox/Simeth [Antacid Suspension] 30 ml PO Q4H PRN 05/14/17 [ History] Mineral Oil/Petrolat,Wht/Water [Lubriderm Daily Moisture Lot] 1 appl TP TID PRN 05/14/17 [History] Ondansetron [Zofran ODT] 8 mg SL Q6H PRN 05/14/17 [History] Polyethylene Glycol 3350 [MiraLAX] 17 gm PO QAM 05/14/17 [History] Rivaroxaban [Xarelto] 20 mg PO QPM 05/14/17 [History] Tamsulosin [Flomax] 0.4 mg PO QAM 05/14/17 [History] Nut.tx.impaired Digest Fxn [Ensure Clear] 1 bottle PO TID #90 can 05/19/17 [Rx] Allergies/Adverse Reactions: 3 Allergy/AdvReac Type Severity Reaction Status Date / Time No Known Allergies Allergy Verified 05/14/17 15:24 - Respiratory Orders Smoking Cessation: Smoking cessation has been advised. For more information, call the [place] Tobacco Quit Line at 6-056-XQDE-NOW. - Ancillary Orders May use pressure relief devices daily prn, May go on PACO w/family/respon republican w /meds at nurse discretion PRN, May have alcoholic beverages, May consult with Dentist, Head Sawyer Automatic, Business Development Officer PRN - Advance Directives Living Will: Yes Power of Inside Sales Director: Yes Code Status: Full Code - History and Physical History/Physical reviewed & approved w/add comments: ROSEMARY Guzman was not present during inpatient admission x5 n - Mobility Orders Ambulate (per PT) - Rehabiliation Orders Rehab Potential: Good Rehab Orders: ROM Exercises, Evaluation for Physical Therapy, Evaluation for Occupational Therapy, Evaluation for Speech Therapy - Treatments Skin tear care topically daily PRN per policy, May check for fecal impaction rectally daily PRN, Fleet enema rectally every other day PRN cleansing purposes - Diet Orders Mechanical Soft House Supplement per Dietary: Ensure clear TIDWM; likes apple CERTIFICATION: I certify that the transfer of the above named patient to an Extended Care Facility is necessary for the continuing treatment of the diagnosis listed. The above information is true and accurate reflection of patient's current condition. Confidential - Redisclosure prohibited without a patient's written consent.
[2017-05-19 19:04] VITALS: BP 100/66
== END 2017-05-19 19:44 | DRG 101 ==
LOC: EMEROO 15:09 → 3BNU 15:09
PROVIDERS: ADMIT Internal Medicine Hematology & Oncology; ATTEND Nurse Practitioner Family